=== PATIENT | female | born 1970 | race Caucasian/White ===

== ENCOUNTER 2020-09-22 13:41 | Outpatient (REF) | payer OTHER, SELFPAY ==
--- NOTE | 2020-09-22 | MM_ITS ---
EXAMINATION: MM SCREENING DIGITAL BREAST TOMOSYNTHESIS, BILATERAL CLINICAL INFORMATION: Screening. Asymptomatic. The lifetime risk of breast cancer based on the Tyrer-Cuzick Model is 7%. COMPARISON: Outside mammography: 10/11/2011, 04/23/2008 ([facility]). TECHNIQUE: Digital breast tomosynthesis is performed in both the craniocaudal and mediolateral oblique views along with computer-aided detection (CAD). Synthesized 2D images are generated from the tomosynthesis. Additional right MLO view is provided. FINDINGS: The breasts are heterogeneously dense, which may obscure small masses (ACR BI-RADS breast composition Category c). Breast tissue composition borders on average fibroglandular. Breast tissue composition is less dense than on prior outside studies. There is no interval mass or architectural abnormality or abnormal calcifications. Skin contours are smooth. MM/MM tomosynthesis screening BI IMPRESSION: No mammographic evidence of malignancy. ASSESSMENT: BI-RADS 1: Negative RECOMMENDATION: Routine annual mammography screening. This patient's information was entered into a reminder system with a target due date for their next mammogram.
== END 2020-09-22 13:42 | disposition home or self-care (01) ==
LOC: HO.MAMMO 13:41
PROVIDERS: Visit Provider Nurse Practitioner Family
DX: Z12.31 Encounter for screening mammogram for malignant neoplasm of breast (principal)
CPT/HCPCS: 77063; 77067

== ENCOUNTER 2022-02-20 21:16 | Emergency (ER) | payer SELFPAY ==
--- NOTE | ~2022-02-20 | CT_ITS ---
EXAMINATION: CT ABDOMEN AND PELVIS WITHOUT CONTRAST CLINICAL INFORMATION: Left flank pain. COMPARISON: Radiograph 02/20/2022 TECHNIQUE: Multidetector volumetric imaging was performed from the superior aspect of the liver through the pubic symphysis. Sagittal and coronal reformatted images were obtained on the technologist's workstation. This CT examination was performed using dose optimization techniques as appropriate, variously including the following: *Automated exposure control *Adjustment of mA and/or kV according to patient size (this includes techniques or standardized protocols for targeted exams where dose is matched to indication/reason for exam; i.e. extremities or head) *Use of iterative reconstruction technique DLP: 843 mGy-cm FINDINGS: LUNG BASES: The visualized lung bases are unremarkable. LIVER, GALLBLADDER, AND BILIARY TREE: The liver is normal in size, shape, and attenuation. No focal hepatic lesion or biliary ductal dilatation is present. The gallbladder is unremarkable with no evidence of radiopaque gallstones, gallbladder wall thickening, or obvious pericholecystic inflammatory changes. PANCREAS: Unremarkable. SPLEEN: Unremarkable. ADRENAL GLANDS: Unremarkable. KIDNEYS AND URETERS: The kidneys are normal in size, shape, and attenuation. No hydronephrosis, hydroureter, or calculi seen. No perinephric stranding. BLADDER: Unremarkable. GASTROINTESTINAL TRACT: The stomach is unremarkable. Normal caliber small bowel. No obstruction. No colonic wall thickening or inflammation. Normal appendix. No free air or free fluid. ABDOMINAL WALL: No significant hernia is appreciated. LYMPH NODES: Normal. VASCULAR: Normal caliber aorta with mild atherosclerotic calcification. PELVIC VISCERA: The uterus and adnexa are unremarkable. OSSEOUS STRUCTURES: No acute or suspicious osseous abnormality. Transitional and at the lumbosacral junction. CT/CT abdomen pelvis wo con IMPRESSION: No acute finding in the abdomen or pelvis. No hydronephrosis or nephrolithiasis. No inflammatory changes. Fleischner guidelines were followed.
--- NOTE | ~2022-02-20 | XR_ITS ---
EXAMINATION: XR ABDOMEN KUB CLINICAL INDICATION: Left-sided flank pain with question of kidney stone COMPARISON: None TECHNIQUE: AP view of the abdomen. FINDINGS: The bowel gas pattern is normal with no evidence of ileus or obstruction. No unusual soft tissue calcifications are noted. The bones are unremarkable. XR/XR KUB IMPRESSION: Unremarkable examination.
[2022-02-20 22:25] VITALS: BP 162/103; PULSE 89; RESP 17; TEMP 36.9; O2SAT 98; BMI 34.4
[2022-02-20 22:53] LABS: Appearance Urine CLEAR; Color Urine YELLOW; Glucose Urine UA NEG (NEG); Leukocyte Esterase Urine NEG (NEG); Nitrite Urine NEG (NEG); Specific Gravity - Urine >= 1.030 (1.005-1.025); Urine Blood NEG (NEG); Urine Ketones NEG (NEG); Urine Protein NEG (NEG-TRACE)
--- NOTE | 2022-02-20 23:50 | ED_ITS ---
HPI - General Adult General Chief complaint: General Medical Stated complaint: upper back pain, r/o clot cat scan Time Seen by Provider: 02/20/22 23:49 Source: patient Mode of arrival: ambulatory History of Present Illness HPI narrative: 51-year-old female without significant past medical history presents with mid posterior back pain/flank pain that has been ongoing for approximately 1 week, is intermittent/sharp in nature and when she does have a pain she experiences ?sweatiness? as well as nausea without vomiting. She otherwise denies any fever, chills, sore throat, shortness of breath, chest pain/palpitations, use control, recent travel, family or personal history of clots, or calf swelling. Patient denies any unexplained weight loss or night sweats and otherwise denies GI or symptoms. She was recently treated for presumptive UTI but then she was called by her PCP and informed that the urine culture did not grow any organisms. Patient denies any new exercise regimen or trauma. Related Data Previous Rx's Medication Instructions Recorded cyclobenzaprine 10 mg tablet 10 mg PO BID #180 tab 05/28/21 lorazepam 0.5 mg tablet 0.5 mg PO BID 30 Days #60 tab 05/28/21 lisinopril 10 mg tablet 10 mg PO DAILY #90 tab 01/22/22 levothyroxine 125 mcg tablet 125 mcg PO DAILY #90 tab 02/10/22 (Synthroid) cyclobenzaprine 5 mg tablet 5 mg PO BEDTIME PRN #4 tab 02/21/22 Allergies Allergy/AdvReac Type Severity Reaction Status Date / Time coconut Allergy Facial Verified 02/20/22 22:25 Swelling walnut Allergy Chest Pain Verified 02/20/22 22:25 PEACHES Allergy Swelling Uncoded 02/20/22 22:25 PLUM Allergy Facial Uncoded 02/20/22 22:25 Swelling Review of Systems Review of Systems: Pertinent positives and negatives as stated in HPI 10 point review of systems is otherwise negative. [facility] Past Medical History Source: nursing notes reviewed Medical History HTN (hypertension) Hypothyroid TMJ (temporomandibular joint syndrome) Social History Social History Advance Directives: No Advance Directives Information Provided: No Patient : No Physical Exam ED Vital Signs: Vital Signs - 24 hr 02/20/22 22:25 Temperature 98.4 F Pulse Rate 89 Respiratory Rate 17 Blood Pressure 162/103 H Pulse Oximetry 98 BMI result Body Mass Index 34.4 VITAL SIGNS: Reviewed. GENERAL: Well developed, well nourished, in no acute distress. HEAD: Normocephalic/atraumatic EYES: PERRLA, EOMI EARS: Ext canals without abnormality OROPHARYNX: no oral lesions noted, posterior pharynx clear NECK: Supple, no adenopathy LUNGS: Normal breath sounds, no tachypnea/wheeze/rhonchi/rales. SpO2<98> CARDIOVASCULAR: Regular rate and rhythm without noted murmurs, no JVD or lower extremity edema. ABDOMEN: Soft, non-tender, non-distended with bowel sounds, no CVA tenderness SKIN: Inspection of the skin reveals no rashes NEUROLOGIC: Alert and oriented x 4. Strength and sensation to light touch were grossly intact x 4. Course Course Course Narrative: 51-year-old female with history and clinical presentation most consistent with renal colic/kidney stone, PERC negative, no suggestion of pneumonia/cardiac ischemia/chest wall pathology or intra-abdominal pathology. Review of all investigations negative for acute findings and results discussed with the patient at bedside and treat for presumptive musculoskeletal pain. Medical Decision Making Lab Data Labs: Lab Results 02/20/22 Range/Units 22:47 Urine Color YELLOW Urine Appearance CLEAR Urine pH 5.0 (5.0-8.0) Ur Specific [place] >= 1.030 H (1.005-1.025) Urine Protein NEG (NEG-TRACE) MG/DL Urine Glucose (UA) NEG (NEG) MG/DL Urine Ketones NEG (NEG) MG/DL Urine Blood NEG (NEG) Urine Nitrite NEG (NEG) Ur Leukocyte Esterase NEG (NEG) Discharge Plan Discharge Clinical Impression: Mid back pain on left side, Muscle spasm Patient Disposition: Home, Self-Care Instructions: Muscle Spasm (ED), Back Pain (ED) Additional Instructions: 1. Tylenol 1000 mg, orally, every 6 hours as needed for pain control. Do not exceed 4000 mg within 24 hours. 2. Ibuprofen 400 mg, orally with milk or food, every 6 hours as needed for pain control. 3. Lidocaine patch to area of maximal tenderness as directed on the outside packaging. 4. Recommend following up with your primary care provider for re-evaluation and further outpatient management. Return to the ER for worsening symptoms. Prescriptions: New cyclobenzaprine 5 mg tablet 5 mg PO BEDTIME PRN (Reason: muscle spasm) Qty: 4 0RF No Action cyclobenzaprine 10 mg tablet 10 mg PO BID Qty: 180 0RF lorazepam 0.5 mg tablet 0.5 mg PO BID 30 Days Qty: 60 1RF lisinopril 10 mg tablet 10 mg PO DAILY Qty: 90 1RF levothyroxine [Synthroid] 125 mcg tablet 125 mcg PO DAILY Qty: 90 0RF
[2022-02-21] MEDS: Acetaminophen 325 MG TABLET 975 MG PO (02:18)
[2022-02-21] MEDS: Ketorolac Tromethamine 15 MG/ML VIAL IM (02:18)
== END 2022-02-21 03:10 | disposition home or self-care (01) ==
PROVIDERS: Emergency Provider Student in an Organized Health Care Education/Training Program
DX: M54.50 Low back pain, unspecified (principal); R10.2 Pelvic and perineal pain; Z79.899 Other long term (current) drug therapy
CPT/HCPCS: 74018; 74176; 81003; 96372; 99283; 99284; J1885

== ENCOUNTER 2022-07-18 13:47 | Outpatient (REF) | payer OTHER, SELFPAY ==
--- NOTE | ~2022-07-18 | US_ITS ---
EXAMINATION: US VENOUS ULTRASOUND WITH DOPPLER LOWER EXTREMITY, LEFT CLINICAL INFORMATION: Pain and swelling left lower extremity. Assess for occult DVT. COMPARISON: None TECHNIQUE: Ultrasound of the deep veins is performed from the hip to the calf with compression sonography and color and pulse Doppler assessment. Spectral analysis with color-flow imaging is performed. FINDINGS: There is normal venous compression and respiratory variation and augmented flow. The visualized common femoral vein, superficial femoral vein, profunda femoral vein, popliteal vein, and the trifurcation region shows no evidence of deep venous thrombosis. No popliteal fossa cyst demonstrated. Additional imaging anterior left mid thigh is unremarkable. US/US venous duplex LE LT IMPRESSION: No DVT demonstrated in the left lower extremity.
== END 2022-07-18 13:48 | disposition home or self-care (01) ==
LOC: HO.HMGCX 13:47
PROVIDERS: Visit Provider Nurse Practitioner Family
DX: M79.605 Pain in left leg (principal); R60.0 Localized edema; M79.89 Other specified soft tissue disorders
CPT/HCPCS: 93971

== ENCOUNTER 2022-07-19 10:07 | Outpatient (REF) | payer OTHER, SELFPAY ==
[2022-07-19 11:21] LABS: Appearance Urine Cloudy; Color Urine Yellow; Glucose Urine UA Negative (Negative); Leukocyte Esterase Urine Negative (Negative); Nitrite Urine Negative (Negative); PH 5.5 (5.0-9.0); Specific Gravity - Urine >= 1.030 (1.005-1.025); UMIC TRIGGER UACC YES; Urine Blood Small (1+) (Negative); Urine Ketones Negative (Negative); Urine Protein Negative (Neg-Trace)
[2022-07-19 11:23] LABS: MANUAL DIFF FLAG NO
[2022-07-19 11:31] LABS: Basophils Percent Auto 0.7 % (0-2); Eosinophils Absolute Auto 0.2 X10*3/uL (0.0-0.4); Eosinophils Percent Auto 4.1 % (0-4); Hematocrit 35.6 % (37.0-47.0); Hemoglobin 11.7 g/dl (12.0-16.0); Imm Gran Abs Auto 0.01 X10*3/uL (0.00-0.03); Imm Gran Pct Auto 0.2 % (0.0-0.4); Lymphocytes Absolute Auto 1.3 X10*3/uL (1.2-4.9); Lymphocytes Percent Auto 31.1 % (20-40); Mean Corpuscular HGB Conc 32.9 g/dl (31.0-35.0); Mean Corpuscular Hemoglobin 29.7 pg (27.0-33.0); Mean Corpuscular Volume 90.4 fL (80.0-98.0); Mean Platelet Volume 9.9 fL (9.4-12.3); Monocytes Absolute Auto 0.4 X10*3/uL (0.1-1.2); Monocytes Percent Auto 8.4 % (2-11); Neutrophils Absolute Auto 2.3 x10*3/uL (2.0-8.3); Neutrophils Percent Auto 55.5 % (45-73); Platelet Count 328 X10*3/uL (160-400); Red Blood Count 3.94 X10*6/uL (4.20-5.50); Red Cell Distribution Width 13.1 % (11.0-16.0); White Blood Count 4.2 X10*3/uL (4.8-10.8)
[2022-07-19 11:50] LABS: Bacteria Urine None Seen (None Seen); Hyaline Casts Urine 0-2 /LPF (0-2); Other Crystals Urine Present; WBC Urine 0-5 /HPF (0-5)
[2022-07-19 12:06] LABS: Ferritin 33 ng/mL (10-250); TSH reflex Free T4 0.01 uIU/mL (0.32-4.0)
[2022-07-19 12:11] LABS: Vitamin B12 254 pg/mL (200-900)
[2022-07-19 14:34] LABS: Anion Gap 16 (12-20); Bilirubin Total 0.5 mg/dL (0.0-1.0); Blood Urea Nitrogen 15 mg/dL (9-16); Carbon Dioxide 23 mmol/L (22-29); Chloride 106 mmol/L (96-108); Estimated Glomerular Filt Rate > 60; Glucose Fasting 99 mg/dL (60-99); Iron 77 mcg/dL (30-160); Percent Iron Saturation 19 % (15-50); Sodium 141 mmol/L (135-145); Total Iron Binding Capacity 410 mcg/dL (228-428); Unsaturated Iron Binding 333 ug/dL
[2022-07-19 14:35] LABS: Alanine Aminotransferase 17 U/L (0-31); Albumin Level 4.5 g/dL (3.5-5.0); Alkaline Phosphatase 84 U/L (39-117); Aspartate Amino Transferase 18 U/L (5-31); Cholesterol 243 mg/dL; HDL Cholesterol 54 mg/dL; LDL Cholesterol Calculated 156 mg/dl; Total Protein 7.1 g/dL (6.5-8.0); Triglycerides 166 mg/dL
== END 2022-07-19 10:08 | disposition home or self-care (01) ==
LOC: HO.HMGCLDS 10:07
PROVIDERS: PCP Nurse Practitioner Family; Visit Provider Nurse Practitioner Family
DX: R06.02 Shortness of breath (principal); Z82.49 Family history of ischemic heart disease and other diseases of the circulatory system
CPT/HCPCS: 36415; 80053; 80061; 81001; 82607; 82728; 82746; 83540; 84439; 84443; 85025

== ENCOUNTER 2022-11-08 11:16 | Outpatient (REF) | payer SELFPAY ==
[2022-11-08 14:10] LABS: MANUAL DIFF FLAG NO
[2022-11-08 14:16] LABS: Basophils Percent Auto 0.9 % (0-2); Eosinophils Absolute Auto 0.2 X10*3/uL (0.0-0.4); Eosinophils Percent Auto 5.1 % (0-4); Hematocrit 34.2 % (37.0-47.0); Imm Gran Abs Auto 0.02 X10*3/uL (0.00-0.03); Imm Gran Pct Auto 0.5 % (0.0-0.4); Lymphocytes Absolute Auto 1.7 X10*3/uL (1.2-4.9); Lymphocytes Percent Auto 39.6 % (20-40); Mean Corpuscular HGB Conc 32.2 g/dl (31.0-35.0); Mean Corpuscular Hemoglobin 29.5 pg (27.0-33.0); Mean Corpuscular Volume 91.7 fL (80.0-98.0); Mean Platelet Volume 9.5 fL (9.4-12.3); Monocytes Absolute Auto 0.3 X10*3/uL (0.1-1.2); Monocytes Percent Auto 6.7 % (2-11); Neutrophils Percent Auto 47.2 % (45-73); Platelet Count 259 X10*3/uL (160-400); Red Blood Count 3.73 X10*6/uL (4.20-5.50); Red Cell Distribution Width 13.2 % (11.0-16.0); White Blood Count 4.3 X10*3/uL (4.8-10.8)
[2022-11-08 14:19] LABS: Appearance Urine Clear; Color Urine Yellow; Glucose Urine UA Negative (Negative); Leukocyte Esterase Urine Negative (Negative); Nitrite Urine Negative (Negative); PH 5.5 (5.0-9.0); Specific Gravity - Urine 1.025 (1.005-1.025); UMIC TRIGGER UACC YES; Urine Blood Small (1+) (Negative); Urine Ketones Negative (Negative); Urine Protein Negative (Neg-Trace)
[2022-11-08 14:37] LABS: Bacteria Urine None Seen (None Seen); Hyaline Casts Urine 0-2 /LPF (0-2); RBC Urine 0-2 /HPF (0-2); Squamous Epithelial Cell Urine 0-2 /HPF (0-2); WBC Urine 0-5 /HPF (0-5)
[2022-11-08 14:38] LABS: Alanine Aminotransferase 11 U/L (0-31); Albumin Level 4.4 g/dL (3.5-5.0); Alkaline Phosphatase 87 U/L (39-117); Anion Gap 10 (12-20); Aspartate Amino Transferase 14 U/L (5-31); Bilirubin Total 0.6 mg/dL (0.0-1.0); Blood Urea Nitrogen 17 mg/dL (9-16); Calcium 9.4 mg/dL (8.4-10.2); Carbon Dioxide 27 mmol/L (22-29); Chloride 105 mmol/L (96-108); Estimated Glomerular Filt Rate > 60; Glucose Random 92 mg/dL (60-115); Potassium 4.2 mmol/L (3.3-5.1); Sodium 138 mmol/L (135-145); Total Protein 6.8 g/dL (6.5-8.0)
[2022-11-08 14:44] LABS: TSH reflex Free T4 8.39 uIU/mL (0.32-4.0)
[2022-11-08 15:21] LABS: Free T4 (Free Thyroxine) 1.05 ng/dL (0.71-1.85)
== END 2022-11-08 11:17 | disposition home or self-care (01) ==
LOC: HO.HMGCLDS 11:16
PROVIDERS: PCP Nurse Practitioner Family; Visit Provider Nurse Practitioner Family
DX: E03.9 Hypothyroidism, unspecified (principal)
CPT/HCPCS: 36415; 80053; 81001; 84439; 84443; 85025

== ENCOUNTER 2023-03-29 14:09 | Emergency (ER) | payer OTHER, SELFPAY ==
--- NOTE | ~2023-03-29 | XR_ITS ---
EXAMINATION: Right knee, left foot and left ankle. CLINICAL INDICATION: Fall. Pain. COMPARISON: None. The area of the jugular Right knee 4 views, left foot 3 views and left ankle 2 views. FINDINGS: Right knee: The tricompartment joints is maintained normal. No loose bodies, bony erosive changes or joint effusion seen. No acute fracture or dislocation. Left ankle: No visible acute fracture, dislocation or subluxation seen. There is dorsal talonavicular enthesophytes. Mild dorsal midfoot soft tissue swelling is seen The ankle mortise and subtalar joints are normal The soft tissues are normal. Left foot: There is no visible acute fracture, dislocation or subluxation. The soft tissues are normal. XR/XR ankle LT 2V IMPRESSION: Unremarkable right knee. Mild soft tissue swelling dorsal midfoot. Mild dorsal talonavicular spurring.
--- NOTE | ~2023-03-29 | XR_ITS ---
EXAMINATION: Right knee, left foot and left ankle. CLINICAL INDICATION: Fall. Pain. COMPARISON: None. The area of the jugular Right knee 4 views, left foot 3 views and left ankle 2 views. FINDINGS: Right knee: The tricompartment joints is maintained normal. No loose bodies, bony erosive changes or joint effusion seen. No acute fracture or dislocation. Left ankle: No visible acute fracture, dislocation or subluxation seen. There is dorsal talonavicular enthesophytes. Mild dorsal midfoot soft tissue swelling is seen The ankle mortise and subtalar joints are normal The soft tissues are normal. Left foot: There is no visible acute fracture, dislocation or subluxation. The soft tissues are normal. XR/XR foot LT 2V IMPRESSION: Unremarkable right knee. Mild soft tissue swelling dorsal midfoot. Mild dorsal talonavicular spurring.
--- NOTE | ~2023-03-29 | XR_ITS ---
EXAMINATION: Right knee, left foot and left ankle. CLINICAL INDICATION: Fall. Pain. COMPARISON: None. The area of the jugular Right knee 4 views, left foot 3 views and left ankle 2 views. FINDINGS: Right knee: The tricompartment joints is maintained normal. No loose bodies, bony erosive changes or joint effusion seen. No acute fracture or dislocation. Left ankle: No visible acute fracture, dislocation or subluxation seen. There is dorsal talonavicular enthesophytes. Mild dorsal midfoot soft tissue swelling is seen The ankle mortise and subtalar joints are normal The soft tissues are normal. Left foot: There is no visible acute fracture, dislocation or subluxation. The soft tissues are normal. XR/XR knee RT 3V IMPRESSION: Unremarkable right knee. Mild soft tissue swelling dorsal midfoot. Mild dorsal talonavicular spurring.
--- NOTE | 2023-03-29 14:16 | ED_ITS ---
HPI - Fall General Chief Complaint: Extremity Injury, Lower Stated Complaint: Work inj/R knee inj/L ankle inj Time Seen by Provider: 03/29/23 14:44 History of Present Illness HPI Narrative: patient complains of right knee and left ankle pain after a slip and fall yesterday where she fell down 2 steps and landed on her ankle twisting it and also twisted and banged her right knee, no other injury no other complaint she did hit her head there is no headache neck pain back pain no arm pain no numbness no weakness Related Data Home Medications Medication Instructions Recorded Confirmed loratadine 10 mg tablet (Claritin) 10 mg PO DAILY 07/18/22 07/18/22 Previous Rx's Medication Instructions Recorded lorazepam 0.5 mg tablet 0.5 mg PO BID 30 days #60 tabs 05/28/21 amoxicillin 875 mg-potassium 1 tab PO BID 10 days #20 tabs 07/20/22 clavulanate 125 mg tablet fluoxetine 20 mg capsule (Prozac) 20 mg PO DAILY 30 days #30 caps 11/06/22 levothyroxine 100 mcg tablet 100 mcg PO DAILY 30 days #30 tabs 01/13/23 lisinopril 10 mg tablet 10 mg PO DAILY #90 tabs 02/13/23 Allergies Allergy/AdvReac Type Severity Reaction Status Date / Time coconut Allergy Facial Verified 07/18/22 12:25 Swelling walnut Allergy Chest Pain Verified 07/18/22 12:25 PEACHES Allergy Swelling Uncoded 07/18/22 12:25 PLUM Allergy Facial Uncoded 07/18/22 12:25 Swelling PMFSH Past Medical History Source: nursing notes reviewed Medical History (Updated 03/30/23 @ 00:00 by Tu Johnson) HTN (hypertension) Hypothyroid TMJ (temporomandibular joint syndrome) Family History Family History (Updated 07/18/22 @ 12:27 by DEMARCUS Ardon) Father No problems noted. Mother No problems noted. Social History Social History Housing: Apartment Patient Tobacco Use Status: Former Tobacco user Quit Date: quit 8 years ago e-Cigarette/Vaping Use: Never Used Second Hand Smoke Exposure: No service: No Current occupational status: employed Current occupation: [employer] Current occupational exposures/hazards: No Cognitive needs: No Hearing needs: No Vision needs: No Physical Exam Vital Signs: Vital Signs: Last Vital Signs Temp 98 F 03/29/23 14:24 Pulse 92 03/29/23 14:24 Resp 16 03/29/23 14:24 BP 137/77 03/29/23 14:24 Pulse Ox 98 03/29/23 14:24 O2 Del Method Room Air 03/29/23 14:24 BMI result Body Mass Index 32.3 general appearance no distress Head is normocephalic atraumatic Neck is supple nontender Respiratory no distress Extremities the right knee had full range of motion there was some mild bilateral tenderness there is no effusion there is no ligamentous laxity patient can do a straight leg raise can flex past 90, there was ecchymosis and contusion on the proximal tibia area, but no significant tenderness deformity or swelling The left ankle was swollen and tender both medial and lateral with significant ecchymosis, neurovascular intact distal no obvious deformity Course Course Course Narrative: This is a rapid medical exam. Deferred additional HPI, ROS, PE to primary provider. 52 yo female with history of hypothyroidism here with complaints of right knee pain, left ankle pain after fall down several steps at work yesterd ay. Pain worsened with WB. Denies hitting head or LOC. WIll check x-rays. VSS X-rays of ankle and knee were negative, patient is diagnosed with ankle and knee sprain Plan is activity as tolerated follow with orthopedist Discharge Plan Discharge Clinical Impression: Left ankle sprain, Right knee sprain Patient Disposition: Home, Self-Care Additional Instructions: x-ray did not show any broken bones in the left ankle or right knee You likely have sprain both her knee and her ankle Follow with orthopedist if needed, there is usually improvement within a week we do not need to use her crutches Return any time any worse condition or any concerns Apply ice elevate leg, activity as tolerated Prescriptions: No Action lorazepam 0.5 mg tablet 0.5 mg PO BID 30 Days Qty: 60 1RF amoxicillin-pot clavulanate 875-125 mg tablet 1 tab PO BID 10 Days Qty: 20 0RF fluoxetine [Prozac] 20 mg capsule 20 mg PO DAILY 30 Days Qty: 30 3RF levothyroxine 100 mcg tablet 100 mcg PO DAILY 30 Days Qty: 30 2RF lisinopril 10 mg tablet 10 mg PO DAILY Qty: 90 1RF loratadine [Claritin] 10 mg tablet 10 mg PO DAILY Referrals: Forrest Bai MD [Physician] - ( left ankle sprain, right knee sprain) Stand Alone Forms: Work/School Release Interventions: ED Discharge Assessment Last Done: 03/29/23 16:30 Discharge Date/Time: 03/29/23 16:30
[2023-03-29 14:24] VITALS: BP 137/77; PULSE 92; RESP 16; TEMP 36.6; O2SAT 98; BMI 32.3
== END 2023-03-29 16:30 | disposition home or self-care (01) ==
PROVIDERS: Emergency Provider Emergency Medicine; PCP Nurse Practitioner Family
DX: S93.402A Sprain of unspecified ligament of left ankle, initial encounter (principal); S93.401A Sprain of unspecified ligament of right ankle, initial encounter; M25.562 Pain in left knee; M25.561 Pain in right knee; W01.0XXA Fall on same level from slipping, tripping and stumbling without subsequent striking against object, initial encounter; Y93.9 Activity, unspecified; Y92.9 Unspecified place or not applicable; Y99.0 Civilian activity done for income or pay; Z79.899 Other long term (current) drug therapy; Z87.891 Personal history of nicotine dependence
CPT/HCPCS: 73562; 73600; 73620; 99282; 99283

== ENCOUNTER 2023-04-17 09:39 | Outpatient (REF) | payer OTHER, SELFPAY | END 2023-04-17 09:40 | disposition home or self-care (01) | LOC: HO.HOSX 09:39 | PROVIDERS: Visit Provider Physician Assistant | DX: Z13.89 Encounter for screening for other disorder (principal) ==

== ENCOUNTER 2023-10-19 11:25 | Outpatient (REF) | payer SELFPAY ==
[2023-10-19 13:32] LABS: MANUAL DIFF FLAG NO
[2023-10-19 13:41] LABS: Basophils Percent Auto 0.6 % (0-2); Eosinophils Absolute Auto 0.3 X10*3/uL (0.0-0.4); Eosinophils Percent Auto 8.6 % (0-4); Hematocrit 36.2 % (37.0-47.0); Hemoglobin 11.8 g/dl (12.0-16.0); Imm Gran Abs Auto 0.01 X10*3/uL (0.00-0.03); Imm Gran Pct Auto 0.3 % (0.0-0.4); Immature Retic Fraction 9.4 % (3.0-15.9); Lymphocytes Absolute Auto 1.3 X10*3/uL (1.2-4.9); Lymphocytes Percent Auto 35.9 % (20-40); Mean Corpuscular HGB Conc 32.6 g/dl (31.0-35.0); Mean Corpuscular Hemoglobin 29.1 pg (27.0-33.0); Mean Corpuscular Volume 89.4 fL (80.0-98.0); Mean Platelet Volume 9.4 fL (9.4-12.3); Monocytes Absolute Auto 0.2 X10*3/uL (0.1-1.2); Monocytes Percent Auto 5.8 % (2-11); Neutrophils Absolute Auto 1.8 x10*3/uL (2.0-8.3); Neutrophils Percent Auto 48.8 % (45-73); Platelet Count 308 X10*3/uL (160-400); Red Blood Count 4.05 X10*6/uL (4.20-5.50); Red Cell Distribution Width 12.4 % (11.0-16.0); Retic HGB Equivalent 29.4 pg (30.0-35.0); Reticulocyte Percent 0.9 % (0.5-1.8); Reticulocytes Absolute 0.037 X10*6/uL (0.026-0.095); White Blood Count 3.6 X10*3/uL (4.8-10.8)
[2023-10-19 13:53] LABS: Appearance Urine Clear; Color Urine Yellow; Glucose Urine UA Negative (Negative); Leukocyte Esterase Urine Negative (Negative); Nitrite Urine Negative (Negative); PH 5.5 (5.0-9.0); Specific Gravity - Urine >= 1.030 (1.005-1.025); UMIC TRIGGER UACC YES; Urine Blood Trace (Negative); Urine Ketones Negative (Negative); Urine Protein Negative (Neg-Trace)
[2023-10-19 14:02] LABS: Bacteria Urine None Seen (None Seen); Hyaline Casts Urine 0-2 /LPF (0-2); RBC Urine 0-2 /HPF (0-2); Squamous Epithelial Cell Urine 0-2 /HPF (0-2); WBC Urine 0-5 /HPF (0-5)
[2023-10-19 14:18] LABS: Alanine Aminotransferase 11 U/L (0-31); Albumin Level 4.3 g/dL (3.5-5.0); Alkaline Phosphatase 87 U/L (39-117); Anion Gap 15 (12-20); Aspartate Amino Transferase 16 U/L (5-31); Bilirubin Total 0.4 mg/dL (0.0-1.0); Blood Urea Nitrogen 14 mg/dL (9-16); Calcium 9.4 mg/dL (8.4-10.2); Carbon Dioxide 24 mmol/L (22-29); Chloride 107 mmol/L (96-108); Estimated Glomerular Filt Rate > 60; Glucose Random 90 mg/dL (60-115); Iron 77 mcg/dL (30-160); Percent Iron Saturation 26 % (15-50); Potassium 3.9 mmol/L (3.3-5.1); Sodium 142 mmol/L (135-145); Total Iron Binding Capacity 298 mcg/dL (228-428); Total Protein 7.1 g/dL (6.5-8.0); Unsaturated Iron Binding 221 ug/dL
[2023-10-19 14:31] LABS: Folate 12.4 ng/mL (> or = 4.0); Vitamin B12 387 pg/mL (200-900)
[2023-10-19 14:36] LABS: Ferritin 61 ng/mL (10-250); TSH reflex Free T4 0.34 uIU/mL (0.32-4.0)
== END 2023-10-19 11:26 | disposition home or self-care (01) ==
LOC: HO.HMGCLDS 11:25
PROVIDERS: PCP Nurse Practitioner Family; Visit Provider Nurse Practitioner Family
DX: E03.9 Hypothyroidism, unspecified (principal); D64.9 Anemia, unspecified
CPT/HCPCS: 36415; 80053; 81001; 82607; 82728; 82746; 83540; 84443; 85025; 85045

== ENCOUNTER 2023-10-31 09:05 | Outpatient (AMB) | payer SELFPAY ==
--- NOTE | 2023-10-31 07:17 | MHC.PC.OV ---
Intake Visit Reasons: Discuss labs-iphone Allergies coconut Allergy (Verified 05/07/23 12:04) Facial Swelling walnut Allergy (Verified 05/07/23 12:04) Chest Pain PEACHES Allergy (Uncoded 05/07/23 12:04) Swelling PLUM Allergy (Uncoded 05/07/23 12:04) Facial Swelling Medication List - Last Reconciled 10/31/23 by DEMARCUS Ardon cyclobenzaprine 10 mg PO BID 90 days fluoxetine (Prozac) 20 mg PO DAILY levothyroxine 100 mcg PO DAILY lisinopril 10 mg PO DAILY loratadine (Claritin) 10 mg PO DAILY lorazepam 0.5 mg PO BID 30 days Tobacco use date assessed: 07/18/22 HPI Discuss labs-iphone HPI Details Pt's last labs showed iron deficiency anemia. She denies any GI bleeding. Recommended pt start iron tabs daily. Repeat labs and FIT testing have been ordered. Micro hem also noted, pt has been worked up for this in the past. Repeat UA and cytology have been ordered. Pt quit smoking 8 years ago. Denies fever, chills, and visible hematuria. [facility] Medical History TMJ (temporomandibular joint syndrome) HTN (hypertension) Hypothyroid Family History Father No problems noted. Mother No problems noted. Social History Housing: Apartment Patient Tobacco Use Status: Former Tobacco user Quit Date: quit 8 years ago e-Cigarette/Vaping Use: Never Used Second Hand Smoke Exposure: No service: No Current occupational status: employed Current occupation: [employer] Current occupational exposures/hazards: No Cognitive needs: No Hearing needs: No Vision needs: No Questionnaire Thrive Questionnaire Date Thrive assessed: 07/18/22 GURDEEP-7 AMB Questionnaire GURDEEP-7 Date GURDEEP - 7 assessed: 07/18/22 Source: Developed by Drs. Janes Lopez, Susanna Riggins, Leonardo Gerber and colleagues, with an educational elaine from [employer]. Review of Systems Const Reports as per HPI Physical exam (Primary Care) Tobacco/Smoking Status: Tobacco use Status Tobacco use date assessed 07/18/22 10/31/23 07:19 Patient Tobacco Use Status Former Tobacco user 10/31/23 07:19 e-Cigarette/Vaping Use Never Used 10/31/23 07:19 Thrive Assessment: Date of Thrive Assessment Date Thrive assessed 07/18/22 10/31/23 07:19 Const General: cooperative Orientation/consciousness: patient oriented x3 Resp Auscultation: clear to auscultation bilaterally Neuro General: patient oriented x3 Psych Appearance: grossly normal Mental Status: mental status grossly normal Speech and movement: Clear speech present Affect: normal affect Attitude: cooperative Thought process: Normal thought process present Thought content: Normal thought content present Insight: Good insight present (Psych) Judgement: Good judgement present (Psych) Telehealth Telehealth Location of provider rendering services: practice address Location of patient: address on file Patient Identification confirmed using: Name, : Yes Telehealth method: video Patient verbally consented to treatment: Yes Patient verbally consented to billing insurance company: Yes Patient informed of any privacy concerns related to visit: Yes Minutes spent on Phone/Video with Pt.: 10 Assessment and Plan Assessment & Plan (1) Microscopic hematuria: Comment: was worked up for micro hem in the past (including cytology and cystoscopy) Code(s): R31.29 - Other microscopic hematuria (2) Iron deficiency anemia: Code(s): D50.9 - Iron deficiency anemia, unspecified (3) Hypothyroid: Code(s): E03.9 - Hypothyroidism, unspecified Plan The patient agreed to the use of a medical auditor for this encounter. Scribed for FRANCES Aponte-DOYLE by kristen Pierson scribe, on 10/31/2023 at 07:15 EST. Coding Level of Care Code Tele Est Pt Level 3 (94801) Diagnoses Microscopic hematuria R31.29 Iron deficiency anemia D50.9 Hypothyroid E03.9
== END 2023-10-31 10:37 | disposition home or self-care (01) ==
LOC: HO.HMGC 09:05
PROVIDERS: PCP Nurse Practitioner Family; Visit Provider Nurse Practitioner Family
DX: R31.29 Other microscopic hematuria (principal); D50.9 Iron deficiency anemia, unspecified; E03.9 Hypothyroidism, unspecified
CPT/HCPCS: 99213

== ENCOUNTER 2024-10-18 14:16 | Outpatient (AMB) | payer OTHER, SELFPAY ==
[2024-10-18 14:16] VITALS: BP 120/72; PULSE 92; TEMP 36.3; O2SAT 97; BMI 32.3
--- NOTE | 2024-10-18 14:16 | AM.OFFWIN_ITS ---
Intake Vital Signs 10/18/24 14:16 Height 5 ft 6 in Weight 200 lb BMI 32.3 BP 120/72 Blood Pressure Location Rt brachial Position Sitting Pulse 92 Pulse Source Pulse Oximeter Temp 97.3 F Temp Source Temporal Artery Scan Pulse Oximetry (%) 97 Intake Visit Reasons: EP ?sinus infection/Mouth infection Patient Tobacco Use Status: Former Tobacco user Allergies coconut Allergy (Verified 10/18/24 14:16) Facial Swelling walnut Allergy (Verified 10/18/24 14:16) Chest Pain PEACHES Allergy (Uncoded 05/07/23 12:04) Swelling PLUM Allergy (Uncoded 05/07/23 12:04) Facial Swelling Do you need a note to return to daycare/school/sports/work: No HPI HPI Comments History of Present Illness Details She presents to office with sinus, L ear and R oral complaint She states chronic sinus issues and has been having URI sinus symptoms all fall Uses flonase, claritin, sudafed prn for symptoms States recently sinus pressure worse with head lowering/bending over Onset of L sided ear pain without hearing changes + R lower tooth pain and swelling, ashok rned for infection and she does not have dentist denies dental trauma States + subjective fever/chills No medicine otherwise for symptoms and has not been seen yet + cough with phlegm production without C P or SOB PFSH Medical History TMJ (temporomandibular joint syndrome) HTN (hypertension) Hypothyroid Family History Father No problems noted. Mother No problems noted. Social History Housing: Apartment Patient Tobacco Use Status: Former Tobacco user e-Cigarette/Vaping Use: Never Used Second Hand Smoke Exposure: No service: No Current occupational status: employed Current occupation: [employer] Current occupational exposures/hazards: No Cognitive needs: No Hearing needs: No Vision needs: No Review of Systems Const Reports chills and Reports fever(s) Eyes Denies change in vision ENT Reports dental pain (R lower gums), Denies ear discharge, Reports otalgia, Reports mouth pain, Reports nasal congestion, Denies tinnitus, Reports sinus pain and Reports sore throat Card Denies chest pain and Denies dyspnea Resp Reports change in phlegm color, Reports cough and Denies dyspnea Skin/Breast Denies sores and Denies wounds Physical Exam Vital Signs: Last Vital Signs Temp 97.3 F 10/18/24 14:16 Pulse 92 10/18/24 14:16 BP 120/72 10/18/24 14:16 Pulse Ox 97 10/18/24 14:16 BMI result Body Mass Index 32.3 General: Non-toxic, NAD. Speaking full sentences. Skin: Warm dry throughout. No facial edema Eye: EOMI HENT: Airway patent. Uvula midline. No pharyngeal erythema or edema. No SVP OPERATIONS. R lower gingivae has + edema lateral to tooth number 30. No drainable abscess present. + ttp. Bilateral canals clear. L TM + erythematous and bulging with central bullae formation. No perforation noted. R Tm minimal erythema without bulging. No TM hemotympanum noted bilaterally Respiratory: CTA bilaterally. No wheezes, rales or rhonchi Cardiac: RRR. No murmur MSK: Full ROM extremities. Neurology: Alert. No aphasia or facial droop. Gait without abnormality Psych: Good mood and affect Assessment & Plan Assessment & Plan (1) Bullous myringitis of left ear: Code(s): H73.012 - Bullous myringitis, left ear Plan: Pt seen and evaluated Augmentin for L ear, sinus and dental coverage HEad elevation Ibuprofen prn pain Mask wear around infants F.U with PCP Call with concerns Pt had no additional questions or concerns at time of discharge Medications: New amoxicillin-pot clavulanate 875-125 mg 1 tab PO BID 20 tabs 0RF fluconazole (Diflucan) 200 mg PO DAILY 2 tabs 0RF Coding Level of Care Code Est Pt Level 3 (09915) Diagnoses Bullous myringitis of left ear H73.012
== END 2024-10-18 14:37 | disposition home or self-care (01) ==
PROVIDERS: PCP Nurse Practitioner Family; Visit Provider Physician Assistant
DX: H73.012 Bullous myringitis, left ear (principal)

== ENCOUNTER → 2024-10-18 14:16 | Outpatient (BNVA) | payer OTHER, SELFPAY | PROVIDERS: PCP Nurse Practitioner Family; Visit Provider Physician Assistant | DX: H73.012 Bullous myringitis, left ear (principal) | CPT/HCPCS: 99212 ==

== ENCOUNTER 2025-02-19 14:48 | Outpatient (AMB) | payer OTHER, SELFPAY ==
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
[2025-02-19 14:53] VITALS: BP 152/98; PULSE 95; O2SAT 98; BMI 35.2
[2025-02-19 15:38] VITALS: BP 142/88
== END 2025-02-19 16:21 | disposition home or self-care (01) ==
LOC: HO.HMCC 14:48
PROVIDERS: PCP Nurse Practitioner Family; Visit Provider Nurse Practitioner Family
DX: Z00.00 Encounter for general adult medical examination without abnormal findings (principal); J45.909 Unspecified asthma, uncomplicated; I10 Essential (primary) hypertension; R01.1 Cardiac murmur, unspecified; Z12.11 Encounter for screening for malignant neoplasm of colon; F17.200 Nicotine dependence, unspecified, uncomplicated

== ENCOUNTER → 2025-02-19 14:48 | Outpatient (BNVA) | payer SELFPAY | PROVIDERS: PCP Nurse Practitioner Family; Visit Provider Nurse Practitioner Family | DX: Z00.00 Encounter for general adult medical examination without abnormal findings (principal); J45.909 Unspecified asthma, uncomplicated; I10 Essential (primary) hypertension; R01.1 Cardiac murmur, unspecified; F17.200 Nicotine dependence, unspecified, uncomplicated | CPT/HCPCS: 96127; 99396 ==

== ENCOUNTER 2025-02-23 09:55 | Outpatient (REF) | payer OTHER, SELFPAY ==
[2025-02-23 13:10] LABS: MANUAL DIFF FLAG NO
[2025-02-23 13:16] LABS: Basophils Absolute Auto 0.1 X10*3/uL (0.0-0.2); Basophils Percent Auto 0.9 % (0-2); Eosinophils Absolute Auto 0.3 X10*3/uL (0.0-0.4); Eosinophils Percent Auto 5.2 % (0-4); Hematocrit 37.5 % (37.0-47.0); Hemoglobin 12.1 g/dl (12.0-16.0); Imm Gran Abs Auto 0.02 X10*3/uL (0.00-0.03); Imm Gran Pct Auto 0.4 % (0.0-0.4); Lymphocytes Absolute Auto 1.3 X10*3/uL (1.2-4.9); Mean Corpuscular HGB Conc 32.3 g/dl (31.0-35.0); Mean Corpuscular Hemoglobin 29.2 pg (27.0-33.0); Mean Corpuscular Volume 90.4 fL (80.0-98.0); Mean Platelet Volume 9.5 fL (9.4-12.3); Monocytes Absolute Auto 0.4 X10*3/uL (0.1-1.2); Monocytes Percent Auto 6.9 % (2-11); Neutrophils Absolute Auto 3.4 x10*3/uL (2.0-8.3); Neutrophils Percent Auto 62.6 % (45-73); Platelet Count 384 X10*3/uL (160-400); Red Blood Count 4.15 X10*6/uL (4.20-5.50); Red Cell Distribution Width 13.1 % (11.0-16.0); White Blood Count 5.4 X10*3/uL (4.8-10.8)
[2025-02-23 13:23] LABS: Appearance Urine Cloudy; Color Urine Yellow; Glucose Urine UA Negative (Negative); Leukocyte Esterase Urine Negative (Negative); Nitrite Urine Negative (Negative); Specific Gravity - Urine >= 1.030 (1.005-1.025); UMIC TRIGGER UACC YES; Urine Blood Moderate (2+) (Negative); Urine Ketones Negative (Negative); Urine Protein Trace mg/dL (Neg-Trace)
[2025-02-23 13:41] LABS: Alanine Aminotransferase 20 U/L (0-31); Albumin Level 4.5 g/dL (3.5-5.0); Alkaline Phosphatase 87 U/L (39-117); Anion Gap 13 (12-20); Aspartate Amino Transferase 25 U/L (5-31); Bilirubin Total 0.5 mg/dL (0.0-1.0); Blood Urea Nitrogen 14 mg/dL (9-16); Calcium 9.5 mg/dL (8.4-10.2); Carbon Dioxide 23 mmol/L (22-29); Chloride 108 mmol/L (96-108); Cholesterol 251 mg/dL (<200); Estimated Glomerular Filt Rate > 60; Glucose Fasting 102 mg/dL (60-99); HDL Cholesterol 59 mg/dL (>40); LDL Cholesterol Calculated 169 mg/dL (<100); Potassium 3.8 mmol/L (3.3-5.1); Sodium 140 mmol/L (135-145); Total Protein 7.2 g/dL (6.5-8.0); Triglycerides 118 mg/dL (<150)
[2025-02-23 13:46] LABS: TSH reflex Free T4 0.51 uIU/mL (0.32-4.0); Vitamin D 25-OH Total 29.8 ng/mL (>30)
[2025-02-23 14:19] LABS: WBC Urine 0-5 /HPF (0-5)
[2025-02-23 14:20] LABS: Bacteria Urine Trace (None Seen); Hyaline Casts Urine 0-2 /LPF (0-2)
[2025-02-27 23:44] LABS: Class Alternaria alternata 2; Class Aspergillus fumigatus 0; Class Bermuda Grass 0; Class Birch 0; Class Cat Dander 0; Class Cladosporium herbarum 0; Class Cockroach 0; Class Common Ragweed 1; Class Cottonwood 0; Class Derm. pterony 0; Class Dermatophagoides farinae 0; Class Dog Dander 0; Class Elm 0; Class Maple Box Elder 0; Class Mountain Cedar 0; Class Mouse Urine Protein 0; Class Mugwort 0; Class Oak 0; Class Penicillium crysogenum 0; Class Rough Pigweed 0; Class Sheep Sorrel 0; Class Sycamore 0; Class Timothy Grass 0; Class Walnut Tree 0; Class White Ash 0; Class White Mulberry 0; D001 IgE D pteronyssinus <0.10 kU/L; D002 - IgE D farinae <0.10 kU/L; E001 - IgE Cat Dander <0.10 kU/L; E005 - IgE Dog Dander <0.10 kU/L; E072-IgE Mouse Urine <0.10 kU/L; G002 IgE Bermuda Grass <0.10 kU/L; G006 - IgE Timothy Grass <0.10 kU/L; I006-IgE Cockroach, German <0.10 kU/L; Immunoglobulin E 5 kU/L (<OR=114); M001 IgE Penicillium chrysogen <0.10 kU/L; M002 - IgE Cladosporium herbar <0.10 kU/L; M003 - IgE Aspergillus fumigat <0.10 kU/L; M006 - IgE Alternaria alternat 1.08 kU/L; T001 IgE Maple/Box Elder <0.10 kU/L; T003 IgE Common Silver Birch <0.10 kU/L; T006 - IgE Cedar, Mountain <0.10 kU/L; T007 - IgE Oak, White <0.10 kU/L; T008 IgE Elm, American <0.10 kU/L; T010 - IgE Walnut <0.10 kU/L; T011 - IgE Maple Leaf Sycamore <0.10 kU/L; T014 - IgE Cottonwood <0.10 kU/L; T015 - IgE Ash, White <0.10 kU/L; T070 - IgE White Mulberry <0.10 kU/L; W006 - IgE Mugwort <0.10 kU/L; W014 IgE Pigweed, Common <0.10 kU/L; W018 IgE Sheep Sorrel <0.10 kU/L
== END 2025-02-23 09:56 | disposition home or self-care (01) ==
LOC: HO.HMGCLDS 09:55
PROVIDERS: PCP Nurse Practitioner Family; Visit Provider Nurse Practitioner Family
DX: Z00.00 Encounter for general adult medical examination without abnormal findings (principal); R06.2 Wheezing
CPT/HCPCS: 36415; 80053; 80061; 81001; 81003; 82306; 82785; 84443; 85025; 86003

== ENCOUNTER → 2025-03-23 13:07 | Outpatient (REF) | payer OTHER, SELFPAY ==
--- NOTE | 2025-03-23 13:10 | CA_ITS ---
Transthoracic Echocardiogram Patient (Last, First, Middle): Elis Vu, Gender: Female Date of : 1970 Age: 54 Procedure Date: 03/23/2025 Procedure Type: Transthoracic Echocardiogram Location: OP Height: 167.64 cm Weight: 95.26 kg BSA: 2.04 m2 Heart Rate: bpm BP: 121 / 79 mmHg Business Services Associate: TIERNEY Referring MD: Jethro Gupta [facility] Symptoms: R01.1 - Cardiac murmur, unspecified Study Quality: Fair, contrast ECG Rhythm: Sinus Conclusions: - The left ventricular systolic function is hyperdynamic. The visually estimated ejection fraction is >70%. - No obvious valvular pathology seen on this study. Findings Procedure Information Contrast agent, definity, is being given per protocol without apparent complications. Left Ventricle Normal left ventricular cavity size. The left ventricular systolic function is hyperdynamic. The visually estimated ejection fraction is >70%. There is no evidence of regional wall motion abnormalities. Diastolic function is normal for age. There is mild septal asymmetric hypertrophy. Right Ventricle Normal right ventricular cavity size and systolic function. Atria Both atria are normal in size. Aortic Valve There is a normal trileaflet aortic valve. There is no aortic valve stenosis. There is no aortic valve regurgitation. Mitral Valve The mitral valve appears normal. There is no mitral valve regurgitation. There is no mitral valve stenosis. Pulmonic Valve The pulmonic valve is likely normal. Tricuspid Valve There is mild tricuspid valve regurgitation. There is no evidence of pulmonary hypertension. Great Vessels The asc aorta and aortic arch are normal in size. Small plaque is seen in the sino tubular ridge. Venous The inferior vena cava is normal in size and collapses greater than 50% with inspiration. Pericardium/Pleural There is no evidence of pericardial effusion. Prior Study Comparison No prior study available for comparison. Recommendations, Care & Conclusions No obvious valvular pathology seen on this study. Measurements 2D Linear Measurements IVSd: 1.20 0.6-0.9/0.6-1.0 cm LVIDd: 3.20 3.9-5.3/4.2-5.9 cm LVIDd Index: 1.57 2.4-3.2/2.2-3.1 cm/m2 LVIDs: 2.13 2.0-3.6 cm LVPWd: 0.89 0.7-1.1 cm LA Diam: 2.80 2.7-3.8/3.0-4.0 cm LAIDs Index: 1.37 1.5-2.3 cm/m2 LV Mass: 119.53 67-162/88-224 g LV Mass Index: 58.59 43-95/49-115 g/m2 LVOT Diam: 2.00 3.0+(-)1.3 cm 2D Systolic Function EF 4C: 77.80 >55% EF 2C: 53.00 >55% EF BiP: 68.10 >55% Mitral Valve MV Pk E: 0.87 MV PK A: 0.84 MV Decel Time: 311.00 E/A: 1.00 E'Lateral: 10.80 E'Medial: 9.25 E/E' Med: 9.40 E/E' Lat: 8.10 PHT: 91.00 MVA PHT: 2.42 Decel [place]: 2.81 Aortic Valve AoV Pk Kaushik: 1.83 AoV Mn Kaushik: 1.20 AoV VTI: 0.35 AoV Pk Grad: 13.00 Aov Mn Grad: 7.00 CONCEPCION Cont.VTI: 2.47 LVOT LVOT Pk Kaushik: 1.58 LVOT Mn Kaushik: 0.94 LVOT VTI: 0.27 LVOT Pk Grad: 10.00 LVOT Mn Grad: 4.00 LVOT Diam: 2.00 LVOT Area: 3.14 Diastolic Function MV Pk E: 0.87 MV Pk A: 0.84 E/A: 1.00 E'Medial: 9.25 E/E' Med: 9.40 E' Laterial: 10.80 E/E' Lat: 8.10 Right Ventricle TAPSE (mm): 21.60 TVS' Kaushik: 12.80 Tricuspid Valve TR Pk Kaushik: 2.55 TR Pk Grad: 26.00 RA Press: 3.00 RVSP: 29.00 Great Vessels Aorta Sinus of Valsalva: 2.93 2.0-3.[address] [place]: 2.13 1.7-3.4 cm Ao Asc: 3.30 2.1-3.4 cm Ao Arch: 2.80 Updated in Other Vendor System with Status of Final Jose Manuel Funez MD electronically signed on 03/23/2025 3:25:20 PM with status of Final
== END ==
LOC: HO.CARD 13:07
PROVIDERS: PCP Nurse Practitioner Family; Visit Provider Nurse Practitioner Family
DX: R01.1 Cardiac murmur, unspecified (principal)
CPT/HCPCS: 93306; Q9957

== ENCOUNTER → 2025-03-23 13:10 | Outpatient (BNV) | payer OTHER, SELFPAY | PROVIDERS: PCP Nurse Practitioner Family; Visit Provider Internal Medicine | DX: I42.2 Other hypertrophic cardiomyopathy (principal); I36.1 Nonrheumatic tricuspid (valve) insufficiency | CPT/HCPCS: 93306 ==

== ENCOUNTER 2025-04-13 12:45 | Outpatient (REF) | payer OTHER, SELFPAY | END 2025-04-13 12:46 | disposition home or self-care (01) | LOC: HO.MAMMO 12:45 | PROVIDERS: PCP Nurse Practitioner Family; Visit Provider Nurse Practitioner Family | DX: Z12.31 Encounter for screening mammogram for malignant neoplasm of breast (principal) | CPT/HCPCS: 77063; 77067 ==

== ENCOUNTER → 2025-04-13 12:45 | Outpatient (BNV) | payer OTHER, SELFPAY | PROVIDERS: PCP Nurse Practitioner Family; Visit Provider Internal Medicine | DX: Z12.31 Encounter for screening mammogram for malignant neoplasm of breast (principal) | CPT/HCPCS: 77063; 77067 ==

== ENCOUNTER 2025-04-14 11:04 | Outpatient (REF) | payer OTHER, SELFPAY ==
--- NOTE | 2025-04-14 11:07 | PFT_ITS ---
Flows: FEV1: 81 % of predicted at 2.28 L FVC: 74 % of predicted at 2.66 L FEV1/FVC: 86 % Bronchodilator response: Absent Volumes: Total lung capacity: 70 % of predicted at 3.89 L Residual volume: 72 % of predicted at 1.24 L Slow vital capacity: 69 % of predicted at 2.65 L Expiratory reserve volume: 18 % of predicted at 0.18 L Diffusion capacity: Mildly decreased, corrects to normal after adjustment for alveolar ventilation. Impression: Moderate restrictive ventilatory defect with no bronchodilator response. Decreased expiratory reserve volume suggests extrathoracic restriction likely secondary to abdominal obesity. Combination of decreased diffusion capacity with restrictive ventilatory defect suggests underlying pulmonary parenchymal disease. Clinical correlation is advised. MTDD
[2025-04-14 11:45] VITALS: PULSE 73; O2SAT 97
== END 2025-04-14 11:05 | disposition home or self-care (01) ==
LOC: HO.RESP 11:04
PROVIDERS: PCP Nurse Practitioner Family; Visit Provider Nurse Practitioner Family
DX: R06.2 Wheezing (principal)
CPT/HCPCS: 94010; 94640; 94727; 94729

== ENCOUNTER → 2025-04-14 11:07 | Outpatient (BNV) | payer OTHER, SELFPAY | PROVIDERS: PCP Nurse Practitioner Family; Visit Provider Internal Medicine Pulmonary Disease | DX: R06.2 Wheezing (principal) | CPT/HCPCS: 94060; 94727; 94729 ==

== ENCOUNTER 2025-04-21 10:27 | Outpatient (REF) | payer OTHER, SELFPAY ==
--- NOTE | ~2025-04-21 | US_ITS ---
EXAMINATION: US ABDOMEN COMPLETE CLINICAL INFORMATION: Unspecified abdominal pain.. COMPARISON: Correlated to CT dated February 21, 2022. TECHNIQUE: Real-time ultrasound of the abdomen using grayscale technique. FINDINGS: PANCREAS: No peripancreatic fluid collection. ABDOMINAL AORTA: The proximal, mid, and distal segments are normal in caliber. INFERIOR VENA CAVA: Visualized portions are normal. LIVER: Liver measures 18 cm by the technologist. No nodular surface. Increased/coarse echotexture. There is a 0.9 cm and a 1.8 cm hypoechoic lesions in the left and right hepatic lobe, respectively. No intrahepatic biliary ductal dilatation. Main portal vein is patent with normal hepatopedal flow direction. GALLBLADDER: Fluid-filled. No pericholecystic fluid collection or gallbladder wall thickening. COMMON BILE DUCT: 5 mm. RIGHT KIDNEY: 11 cm. Normal echotexture. Normal renal cortical thickness. No hydronephrosis. No gross solid or cystic lesion detected by the technologist.. LEFT KIDNEY: 11 cm. Normal echotexture. Normal renal cortical thickness. No hydronephrosis. No gross solid or cystic lesion detected. SPLEEN: 11 cm. No focal lesion. FREE FLUID: None. US/US abdomen complete IMPRESSION: Hepatomegaly and likely steatosis. 2 Hypoechoic lesions. Statistically matter present hemangioma. Recommend further imaging evaluation with dynamic enhanced MRI liver versus triple phase liver CT No cholelithiasis. No hydronephrosis. No ascites.. Electronically signed by: Pernell Parkinson MD 04/21/2025 12:05 PM EDT
== END 2025-04-21 10:28 | disposition home or self-care (01) ==
LOC: HO.US 10:27
PROVIDERS: PCP Nurse Practitioner Family; Visit Provider Nurse Practitioner Family
DX: R10.9 Unspecified abdominal pain (principal)
CPT/HCPCS: 76700

== ENCOUNTER → 2025-04-21 10:29 | Outpatient (BNV) | payer OTHER, SELFPAY | PROVIDERS: PCP Nurse Practitioner Family; Visit Provider Radiology Diagnostic Radiology | DX: R16.0 Hepatomegaly, not elsewhere classified (principal) | CPT/HCPCS: 76700 ==

== ENCOUNTER 2025-04-22 07:20 | Outpatient (AMB) | payer OTHER, SELFPAY ==
--- NOTE | 2025-04-22 08:16 | MHC.PC.OV ---
Intake Visit Reasons: 2M F/U Allergies coconut Allergy (Verified 02/19/25 17:47) Facial Swelling walnut Allergy (Verified 02/19/25 17:47) Chest Pain PEACHES Allergy (Uncoded 02/19/25 17:47) Swelling PLUM Allergy (Uncoded 02/19/25 17:47) Facial Swelling Tobacco use date assessed: 02/19/25 Dental Screening Dental Screen Date: 02/19/25 HPI 2M F/U HPI Details Patient is here for 2 month follow-up. There was a prior history of asthma. I did order some PFTs. There was a moderate parenchymal disease, and obesity is not to play a factor. She does report that the albuterol house but it seems she is using it too often. Sometimes several times a day. I am going to try her on a maintenance inhaler in the form of Symbicort, she notes that rinse her mouth out after each use. She is already set up for a low-dose CAT scan and because of her smoking history, I will also get into Pulmonary for pulmonary assessment related to the PFTs. Abdominal ultrasound rate recently showed possible hemangiomas, is recommended to get a MRI, which was ordered. Patient denies any fevers, chills, chest pain, increased shortness of breath, or any recent wheezing. [facility] Medical History (Updated 04/22/25 @ 08:13 by DEMARCUS Ardon) Personal history of nicotine dependence TMJ (temporomandibular joint syndrome) HTN (hypertension) Hypothyroid Family History Father No problems noted. Mother No problems noted. Social History Housing: Apartment Patient Tobacco Use Status: Former Tobacco user e-Cigarette/Vaping Use: Never Used Second Hand Smoke Exposure: No service: No Current occupational status: employed Current occupation: [employer] Current occupational exposures/hazards: No Cognitive needs: No Hearing needs: No Vision needs: No Questionnaire Thrive Questionnaire Date Thrive assessed: 02/12/25 I am a: Patient What is your living situation today?: I have a steady place to live Within the past 12 months, did the food you bought not last and you didn't have the money to get more?: Never true Within the past 12 months, did you worry whether your food would run out before you got money to buy more?: Never true Do you have trouble paying for medicines?: No Do you have trouble getting transportation to medical appointments?: No Do you have trouble paying your heating and electricity bill?: No Do you have trouble taking care of your child, family member or friend?: No Do you have trouble with day-to-day activities such as bathing, preparing meals, shopping, managing finances, etc.?: No Are you currently unemployed and looking for a job?: No Are you interested in more education?: I choose not to answer this question Please select the resources that you would like help with: None THRIVE Score: 0 GURDEEP-7 AMB Questionnaire GURDEEP-7 Date GURDEEP - 7 assessed: 02/19/25 Source: Developed by Drs. Janes Lopez, Susanna Riggins, Leonardo Gerber and colleagues, with an educational elaine from [employer]. Physical exam (Primary Care) Tobacco/Smoking Status: Tobacco use Status Tobacco use date assessed 02/19/25 02/19/25 14:54 Patient Tobacco Use Status Former Tobacco user 02/19/25 14:51 e-Cigarette/Vaping Use Never Used 02/19/25 14:51 Thrive Assessment: Date of Thrive Assessment Date Thrive assessed 02/12/25 04/15/25 15:20 Const General: cooperative, healthy appearing, comfortable and no acute distress Telehealth Telehealth Telehealth Platform: Apportable Telehealth method: video Patient verbally consented to treatment: Yes Patient verbally consented to billing insurance company: Yes Patient informed of any privacy concerns related to visit: Yes Minutes spent on Phone/Video with Pt.: 12 Coding Level of Care Code Tele Est Pt Level 4 (89780) Diagnoses Liver lesion K76.9 Asthma J45.909 Abnormal PFT R94.2 Personal history of nicotine dependence Z87.891 Assessment & Plan Assessment & Plan (1) Liver lesion: Code(s): K76.9 - Liver disease, unspecified Category: Medical (2) Asthma: Code(s): J45.909 - Unspecified asthma, uncomplicated Category: Medical (3) Abnormal PFT: Code(s): R94.2 - Abnormal results of pulmonary function studies Category: Medical (4) Personal history of nicotine dependence: Code(s): Z87.891 - Personal history of nicotine dependence Category: Medical Plan . Orders: Referrals Pulmonology Referral R94.2 - Abnormal results of pulmonary function studies Medications: New budesonide-formoterol 80-4.5 mcg/actuation (Symbicort) 1 puff inhalation BID 10.2 grams 0RF
== END 2025-04-22 08:58 | disposition home or self-care (01) ==
LOC: HO.HMCC 07:20
PROVIDERS: PCP Nurse Practitioner Family; Visit Provider Nurse Practitioner Family
DX: K76.9 Liver disease, unspecified (principal); J45.909 Unspecified asthma, uncomplicated; R94.2 Abnormal results of pulmonary function studies; Z87.891 Personal history of nicotine dependence

== ENCOUNTER → 2025-04-22 07:20 | Outpatient (BNVA) | payer OTHER, SELFPAY | PROVIDERS: PCP Nurse Practitioner Family; Visit Provider Nurse Practitioner Family | DX: Z13.89 Encounter for screening for other disorder (principal) ==

== ENCOUNTER 2025-04-27 08:48 | Outpatient (REF) | payer OTHER, SELFPAY ==
[2025-04-27 12:52] LABS: Appearance Urine Clear; Color Urine Yellow; Glucose Urine UA Negative (Negative); Leukocyte Esterase Urine Trace (Negative); Nitrite Urine Negative (Negative); PH 5.5 (5.0-9.0); Specific Gravity - Urine 1.025 (1.005-1.025); UMIC TRIGGER UACC YES; Urine Blood Negative (Negative); Urine Ketones Negative (Negative); Urine Protein Negative (Neg-Trace)
[2025-04-27 12:56] LABS: Urine Cytology See Pathology rpt
[2025-04-27 12:59] LABS: Bacteria Urine None Seen (None Seen); Hyaline Casts Urine 0-2 /LPF (0-2); RBC Urine 0-2 /HPF (0-2); Squamous Epithelial Cell Urine 0-2 /HPF (0-2); WBC Urine 0-5 /HPF (0-5)
[2025-04-27 13:24] LABS: Alanine Aminotransferase 14 U/L (0-31); Albumin Level 4.6 g/dL (3.5-5.0); Alkaline Phosphatase 67 U/L (39-117); Anion Gap 13 (12-20); Aspartate Amino Transferase 23 U/L (5-31); Bilirubin Total 0.5 mg/dL (0.0-1.0); Blood Urea Nitrogen 26 mg/dL (9-16); Calcium 9.8 mg/dL (8.4-10.2); Carbon Dioxide 24 mmol/L (22-29); Chloride 107 mmol/L (96-108); Cholesterol 236 mg/dL (<200); Estimated Glomerular Filt Rate > 60; Glucose Fasting 96 mg/dL (60-99); HDL Cholesterol 47 mg/dL (>40); LDL Cholesterol Calculated 158 mg/dL (<100); Potassium 4.7 mmol/L (3.3-5.1); Sodium 139 mmol/L (135-145); Total Protein 6.9 g/dL (6.5-8.0); Triglycerides 155 mg/dL (<150)
== END 2025-04-27 08:49 | disposition home or self-care (01) ==
LOC: HO.HMGCLDS 08:48
PROVIDERS: PCP Nurse Practitioner Family; Visit Provider Nurse Practitioner Family
DX: E78.5 Hyperlipidemia, unspecified (principal); R31.29 Other microscopic hematuria
CPT/HCPCS: 36415; 80053; 80061; 81001; 87086; 88112

== ENCOUNTER 2025-06-12 09:23 | Outpatient (AMB) | payer OTHER, SELFPAY ==
--- NOTE | 2025-06-12 07:37 | MHC.OFFVIS ---
Intake Visit Reasons: Former Smoker Allergies coconut Allergy (Verified 02/19/25 17:47) Facial Swelling walnut Allergy (Verified 02/19/25 17:47) Chest Pain PEACHES Allergy (Uncoded 02/19/25 17:47) Swelling PLUM Allergy (Uncoded 02/19/25 17:47) Facial Swelling HPI HPI Former Smoker: Details: Initial visit for this 54yo former smoker with a 30PYH. Patient started smoking at age 18 for 31 years at 1ppd. She quit 2019. . Notes marijuana use once a week. Denies second hand smoke exposure. Denies exposure to chemicals or substances like asbestos. . Denies known family history of lung cancer. Denies personal history of cancers. Denies chest CT in last year. . Denies recent travel outside the [place]. Denies recent respiratory illness or recent hospitalization for respiratory issues. Denies testing positive for COVID. Admits receiving COVID Vaccine. . Denies fever, chills, new/worsening cough, hemoptysis, hoarseness or dysphagia. Denies significant chest pain, significant dyspnea or unintentional weight loss. Patient Lung Cancer Screening Questionnaire reviewed with patient by provider. . Shared Decision Making Completed. Patient meets criteria. Discussed in detail with patient, the risk vs benefit of LDCT screening. Patient consents to proceed with scan. Discussed and encouraged continued smoking cessation. [facility] Medical History (Updated 06/12/25 @ 09:38 by Elo Frias PA-C) Hypothyroid HTN (hypertension) Dyslipidemia Personal history of nicotine dependence TMJ (temporomandibular joint syndrome) Family History Father No problems noted. Mother No problems noted. Social History (Updated 06/12/25 @ 09:38 by Elo Frias PA-C) Housing: Apartment Patient Tobacco Use Status: Former Tobacco user Years Smoked: (onset 18yo, 1ppd x 31yrs, 30pyh - quit 2019) e-Cigarette/Vaping Use: Never Used Second Hand Smoke Exposure: No service: No Current occupational status: employed Current occupation: [employer] Current occupational exposures/hazards: No Cognitive needs: No Hearing needs: No Vision needs: No Assessment & Plan Assessment & Plan (1) Personal history of nicotine dependence: Comment: (onset 18yo, 1ppd x 31yrs, 30pyh - quit 2019) Code(s): Z87.891 - Personal history of nicotine dependence Category: Medical Plan: - SDM visit completed today in office. - Patient meets criteria for LDCT for lung cancer screening purposes and is asymptomatic. - Smoking cessation counseling offered. Patients can always call [phone]. - Will arrange for a LDCT scan of the chest for screening purposes at [facility]. - Risks, benefits, and alternatives were discussed in detail and the patient agrees to proceed. - Risks discussed include but are not limited to: radiation exposure, anxiety during testing and while awaiting results, false negatives, false positives and possibility of additional intervention such as further imaging or surgical procedures for benign disease. - Benefits are obviously detection of lung cancer at an early stage which can lead to improved outcomes. - Discussed the importance of screening program compliance with adherence to yearly LDCT scan as scheduled - or sooner interval scans for personalized screening regimen. - Discussed follow up plan. Our office will send a letter discussing results and if needed set up phone call and office visit based on CT findings. - Patient educated on results categorization and the management decisions for suspicious findings potentially found on the screening LDCT scan. Any patient with a Lung RADS score of 3 or 4 will be reviewed by a multidisciplinary team at [facility] to form a plan of action in regards to scan findings. - If further work up is warranted for a suspicious lung finding this will be followed by the Lung Cancer Screening program in conjunction with the Thoracic Surgery Department at [facility]. - A copy of the office note and LDCT will be sent to the patient's PCP - as well as documentation on any associated further plans of care. - Incidental findings on LDCT are the PCP's responsibility. These findings are indicated with an S finding on the LDCT Assessment. A note discussing the findings will be sent to the PCP who is then responsible for further management. - All questions answered.? Coding Level of Care Code Lung Cancer Screening G0296 Diagnoses Personal history of nicotine dependence Z87.891
== END 2025-06-12 10:03 | disposition home or self-care (01) ==
LOC: HO.HPS 09:24
PROVIDERS: PCP Nurse Practitioner Family; Referring Provider Nurse Practitioner Family; Visit Provider Physician Assistant Medical
DX: Z87.891 Personal history of nicotine dependence (principal)
CPT/HCPCS: G0296

== ENCOUNTER 2025-06-12 09:45 | Outpatient (REF) | payer OTHER, SELFPAY ==
--- NOTE | ~2025-06-12 | CT_ITS ---
CLINICAL HISTORY: Z87.891 - Personal history of nicotine dependence CT lung cancer screening (LDCT) Comparison: None provided Technique: Axial CT images of the chest using low-dose technique. Referring provider counseled the patient on shared decision-making for LDCT screening. Additional counseling was provided on smoking cessation. Effective radiation dose total: DLP 51 mGycm, CTDIvol 1.6 mGy. Findings: 2 mm left lower lobe nodule on image 87. Mild peripheral interstitial scarring. Very mild emphysematous changes within the right upper lobe. Coronary artery calcifications: Mild Limited upper abdomen: Unremarkable Other: None Impression: Category 2: Benign appearance or behavior. Continue annual screening. ##L2 ## Category 1: Normal; continue annual screening Category 2: Benign appearance or behavior, continue annual screening Category 3: Probably benign, [address] recommended Category 4A: Suspicious, [address] recommended; may consider PET/CT Category 4B: Suspicious, Additional diagnostics and/or tissue sampling recommended Category 4X: Suspicious, Additional diagnostics and/or tissue sampling recommended Category 0: Recalls (incomplete screen due to Incomplete coverage, Noise, Respiratory motion, Expiration, Obscured by acute abnormality) This document has been electronically signed by: Annabelle Casas MD on 06/12/2025 17:09:31
== END 2025-06-12 09:46 | disposition home or self-care (01) ==
LOC: HO.CT 09:45
PROVIDERS: PCP Nurse Practitioner Family; Visit Provider Physician Assistant Medical
DX: Z12.2 Encounter for screening for malignant neoplasm of respiratory organs (principal); Z87.891 Personal history of nicotine dependence
CPT/HCPCS: 71271; G0296

== ENCOUNTER → 2025-06-12 09:47 | Outpatient (BNV) | payer OTHER, SELFPAY | PROVIDERS: PCP Nurse Practitioner Family; Visit Provider Radiology Diagnostic Radiology | DX: Z87.891 Personal history of nicotine dependence (principal) | CPT/HCPCS: 71271 ==

== ENCOUNTER 2025-07-27 08:56 | Outpatient (REF) | payer OTHER, SELFPAY | END 2025-07-27 08:57 | disposition home or self-care (01) | LOC: HO.LAB 08:56 | PROVIDERS: PCP Nurse Practitioner Family; Visit Provider Urology | DX: R31.29 Other microscopic hematuria (principal); Z87.891 Personal history of nicotine dependence | CPT/HCPCS: 81003; 88112; 99202 ==

== ENCOUNTER 2025-07-27 08:56 | Outpatient (AMB) | payer OTHER, SELFPAY ==
--- NOTE | 2025-07-27 09:03 | A.OFFVIS_ITS ---
Intake Visit Reasons: history Microscopic Hematuria Intake Note: New patient presents today for initial visit for microscopic hematuria Urology Medication: Blood Thinner: Antibiotic Allergies: Allergies coconut Allergy (Verified 07/27/25 09:03) Facial Swelling walnut Allergy (Verified 07/27/25 09:03) Chest Pain PEACHES Allergy (Uncoded 02/19/25 17:47) Swelling PLUM Allergy (Uncoded 02/19/25 17:47) Facial Swelling Medication List - Last Reconciled 07/27/25 by Gary Phillips MD albuterol sulfate 90 mcg/actuation (Ventolin HFA) 1 inh inhalation QID PRN atorvastatin 10 mg PO BEDTIME budesonide-formoterol 80-4.5 mcg/actuation (Symbicort) 1 puff inhalation BID fluoxetine 40 mg PO DAILY levothyroxine 100 mcg PO DAILY lisinopril-hydrochlorothiazide 20-12.5 mg 1 tab PO DAILY loratadine (Claritin) 10 mg PO DAILY lorazepam 0.5 mg PO BID 30 days HPI Comments Details: 07/27/25--Elis is a 55 year old female who is here for evaluation for microscopic hematuria. Personal history of nicotine use quit in 2019. History of Present Illness The patient is a 55-year-old female presenting with evaluation for microscopic hematuria. The patient has a history of microscopic hematuria, identified through urinalysis today showing 1+ blood, with negative leukocytes. She reports no visible blood in her urine and had a similar evaluation approximately 20 years ago, which revealed no significant findings at that time. An abdominal ultrasound conducted on April 21, 2025, showed normal kidney appearance with no gross solid or cystic lesions or kidney stones visualized. The patient has a personal history of nicotine use, which she quit in 2019. The patient's daughter had a surgical procedure for ureteral re-implantation due to ureteral reflux, which the patient mentioned might be hereditary, but she is not aware that she has any congenital urinary anomalies. Results - Urinalysis: 1+ blood, - Abdominal ultrasound (04/21/25): Normal kidneys, no gross solid or cystic lesions, no kidney stones Plan 1. Microscopic Hematuria - Plan to send urine for cytology to evaluate for abnormal cells. - Schedule follow-up for office cystoscopy to examine the bladder. - Order a CT scan Urogram to further evaluate the kidneys and bladder. - BUN/creat-- ensure kidney function is normal before proceeding with the CT scan. [facility] Medical History Hypothyroid HTN (hypertension) Dyslipidemia Personal history of nicotine dependence TMJ (temporomandibular joint syndrome) Family History Father No problems noted. Mother No problems noted. Social History Housing: Apartment Patient Tobacco Use Status: Former Tobacco user Years Smoked: (onset 18yo, 1ppd x 31yrs, 30pyh - quit 2019) e-Cigarette/Vaping Use: Never Used Second Hand Smoke Exposure: No service: No Current occupational status: employed Current occupation: [employer] Current occupational exposures/hazards: No Cognitive needs: No Hearing needs: No Vision needs: No Review of Systems Const All systems reviewed & are unremarkable except as noted in HPI and below Reports no additional complaints Eyes Reports no additional complaints ENT Reports no additional complaints Card Reports no additional complaints Resp Reports no additional complaints GI Reports no additional complaints Reports as per HPI Musc Reports no additional complaints Skin/Breast Reports system reviewed and no additional complaints, except as documented Neuro Reports no additional complaints Psych Reports no additional complaints Endo Reports no additional complaints Delvis/Lymph Reports no additional complaints Aller/Immun Reports no additional complaints Physical Exam Const General: cooperative, healthy appearing and no acute distress Orientation/consciousness: patient oriented x3 HEENT Head: Yes normal to inspection, Yes normocephalic and Yes atraumatic Eyes Conjunctivae: conjunctivae normal Neck Neck: Yes normal visual inspection and Yes trachea midline Chest Chest palpation & inspection: normal inspection of the chest Resp Effort & Inspection: normal respiratory effort GI Inspection: Yes normal to inspection Neuro General: patient oriented x3 Psych Appearance: grossly normal Results Reviewed Results Reviewed: Date of Service: 04/21/25 US ABDOMEN COMPLETE CLINICAL INFORMATION: Unspecified abdominal pain.. COMPARISON: Correlated to CT dated February 21, 2022. TECHNIQUE: Real-time ultrasound of the abdomen using grayscale technique. FINDINGS: PANCREAS: No peripancreatic fluid collection. ABDOMINAL AORTA: The proximal, mid, and distal segments are normal in caliber. INFERIOR VENA CAVA: Visualized portions are normal. LIVER: Liver measures 18 cm by the technologist. No nodular surface. Increased/coarse echotexture. There is a 0.9 cm and a 1.8 cm hypoechoic lesions in the left and right hepatic lobe, respectively. No intrahepatic biliary ductal dilatation. Main portal vein is patent with normal hepatopedal flow direction. GALLBLADDER: Fluid-filled. No pericholecystic fluid collection or gallbladder wall thickening. COMMON BILE DUCT: 5 mm. RIGHT KIDNEY: 11 cm. Normal echotexture. Normal renal cortical thickness. No hydronephrosis. No gross solid or cystic lesion detected by the technologist.. LEFT KIDNEY: 11 cm. Normal echotexture. Normal renal cortical thickness. No hydronephrosis. No gross solid or cystic lesion detected. SPLEEN: 11 cm. No focal lesion. FREE FLUID: None. US/US abdomen complete IMPRESSION: Hepatomegaly and likely steatosis. 2 Hypoechoic lesions. Statistically matter present hemangioma. Recommend further imaging evaluation with dynamic enhanced MRI liver versus triple phase liver CT No cholelithiasis. No hydronephrosis. No ascites.. Assessment & Plan Assessment & Plan (1) Microscopic hematuria: Comment: was worked up for micro hem in the past (including cytology and cystoscopy) up to 20 years ago Code(s): R31.29 - Other microscopic hematuria Category: Medical (2) Personal history of nicotine dependence: Comment: (onset 18yo, 1ppd x 31yrs, 30pyh - quit 2019) Code(s): Z87.891 - Personal history of nicotine dependence Category: Medical Plan Plan 1. Microscopic Hematuria - Plan to send urine for cytology to evaluate for abnormal cells. - Schedule follow-up for office cystoscopy to examine the bladder. - Order a CT scan Urogram to further evaluate the kidneys and bladder. - BUN/creat-- ensure kidney function is normal before proceeding with the CT scan. Orders: Orders CT urogram Today R31.29 - Other microscopic hematuria Blood Urea Nitrogen Today R31.29 - Other microscopic hematuria Creatinine Today R31.29 - Other microscopic hematuria Medications: Discontinued amoxicillin-pot clavulanate 875-125 mg Discontinued Reason: Patient Completed Course 1 tab PO BID 10 days 20 tabs 0RF Coding Level of Care Code New Pt Level 4 (60855) Diagnoses Microscopic hematuria R31.29 Personal history of nicotine dependence Z87.891
--- OUTSIDE RECORDS SUMMARY | 2025-07-27 10:24 | XMS_ITS | Clinical Summary ---
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 Active FLUoxetine (PROZAC) 20 MG capsule Take 20 mg by mouth daily. Active levothyroxine (SYNTHROID, LEVOTHROID) 100 MCG tablet Take 100 mcg by mouth every morning. Active acetaminophen (TYLENOL) 650 MG CR tablet Take 650 mg by mouth every 8 (eight) hours as needed for pain (specific location in comments). Active Active Problems No known active problems Family History Medical History Relation Comments CV disease Father 2 Diabetes mellitus Mother 2 Hypertension Mother 2 Relation Status Comments Father 1 Alive Father 2 Mother 1 Alive Mother 2 Social History Tobacco Use Types Packs/Day Years Used Date Smoking Tobacco: Former Cigarettes Smokeless Tobacco: Never Tobacco Cessation:Counseling Given: Not Answered Education Answer Date Recorded Are you interested in more education? Not on shannon e 03/02/2023 Are you concerned about learning? Not on file 03/02/2023 No 03/02/2023 No 03/02/2023 Digital Access Answer Date Recorded No 03/31/2023 No 03/31/2023 Reliable internet access at home? Not on file 03/31/2023 Device with a working camera? Not on file Comments Unknown Sex and Gender Information Value Date Recorded Sex Assigned at Not on file Legal Sex Female 9:35 PM EDT Gender Identity Not on file Sexual Orientation Not on file Last Filed Vital Signs Vital Sign Reading Time Taken Comments Blood Pressure 159/95 04/15/2024 9:30 AM EDT Pulse 71 04/15/2024 9:30 AM EDT Temperature 36.8 C (98.3 F) 04/15/2024 9:30 AM EDT Respiratory Rate 17 04/15/2024 9:30 AM EDT Oxygen Saturation 98% 04/15/2024 9:30 AM EDT Inhaled Oxygen Concentration - - Weight 90.7 kg (200 lb) 04/15/2024 9:30 AM EDT Height 167.6 cm (5' 6 ) 04/15/2024 9:30 AM EDT Body Mass Index 32.28 04/15/2024 9:30 AM EDT Plan of Treatment Health Maintenance Due Date Last Done Comments Adult Td,Tdap Booster 1970 CREATININE LEVEL 1970 LIPID PANEL 1970 POTASSIUM LEVEL 1970 TSH LEVEL 1970 DEPRESSION SCREENING 1982 SMOKING Hx and SMOKELESS TOB ACCO SCREENING 1983 HEPATITIS C SCREENING 1988 HIV ONE-TIME SCREENING (18-6 5 YEARS) 1988 PAP SMEAR 1991 SCREENING FOR DIABETES 2005 MAMMOGRAM 2010 COLOGUARD 2015 COLONOSCOPY 2015 COLORECTAL CANCER SCREENING 2015 FIT TEST 2015 FOBT 2015 SIGMOIDOSCOPY 2015 VIRTUAL COLONOSCOPY 2015 PNEUMOCOCCAL VACCINES (50+ y ears) (1 of 1 - PCV) 2020 ZOSTER VACCINES (1 of 2) 2020 INFLUENZA VACCINE (#1) 2025 COVID-19 VACCINE (2 - 2024-2 6 season) 2025 02/12/2021 HEPATITIS A VACCINES Aged Out No long er eligible based on patient's age to complete this topic HIB VACCINES Aged Out No longer eligi ble based on patient's age to complete this topic MENINGOCOCCAL VACCINES (ACWY) Aged Out No longer eligible based on patient's age to complete this topic MENINGOCOCCAL VACCINES (B) Aged Out N o longer eligible based on patient's age to complete this topic Medical Devices Not on file Insurance WELL[employer] NON NSPG PCP S[employer]VER [employer]ITY CONNECTORCARE [employer] NON NSPG PCP S[employer]VER [employer] CONNECTORCARE [employer] NON NSPG PCP SILVER [employer] CONNECTORCARE [employer] NON NSPG PCP SILVER CLARITY [facility]CTOR[facility] P[facility] SILVER CLARITY CONNECTORCARE [facility] NON NSPG PCP SILVER CLARITY CONNECTORCARE [employer] Care Teams Stemming Machine Operator Relationship Specialty Start Date End Date Jethro Gupta NP [address] [facility] [place] [id number] PCP - General Nurse Practitioner 04/11/23 Additional Source Comments The information contained in this document represents components of the legal health record. It is not the complete legal health record.[facility]
== END 2025-07-27 09:39 | disposition home or self-care (01) ==
LOC: HO.HUSH 08:56
PROVIDERS: PCP Nurse Practitioner Family; Visit Provider Urology
DX: R31.29 Other microscopic hematuria (principal); Z87.891 Personal history of nicotine dependence
CPT/HCPCS: 99204

== ENCOUNTER 2025-09-07 09:54 | Outpatient (AMB) | payer OTHER, SELFPAY ==
--- NOTE | 2025-09-07 10:01 | A.OFFPC_ITS ---
Vital Signs 09/07/25 10:02 Height 5 ft 6 in Weight 205 lb BMI 33.1 BP 114/70 Blood Pressure Location Lt brachial Position Sitting Pulse 84 Pulse Source Pulse Oximeter Temp 98.0 F Pulse Oximetry (%) 98 Oxygen Delivery Method Room Air Intake Visit Reasons: 6m follow up Infectious Disease Technician Required: No Accompanied by: Self / Same As Patient Allergies coconut Allergy (Verified 09/07/25 10:28) Facial Swelling walnut Allergy (Verified 09/07/25 10:28) Chest Pain PEACHES Allergy (Uncoded 09/07/25 10:28) Swelling PLUM Allergy (Uncoded 09/07/25 10:28) Facial Swelling Medication List - Last Reconciled 09/07/25 by FRANCES Ardon- albuterol sulfate 90 mcg/actuation (Ventolin HFA) 1 inh inhalation QID PRN atorvastatin 10 mg PO BEDTIME budesonide-formoterol 80-4.5 mcg/actuation (Symbicort) 1 puff inhalation BID fluoxetine 40 mg PO DAILY levothyroxine 100 mcg PO DAILY lisinopril-hydrochlorothiazide 20-12.5 mg 1 tab PO DAILY loratadine (Claritin) 10 mg PO DAILY lorazepam 0.5 mg PO BID 30 days Tobacco use date assessed: 09/07/25 Dental Screening Dental Screen Date: 09/07/25 Did you have a dental visit in the last 12 months?: No Did you have a dental problem in the last 6 months where you did not have access to dental care?: No Was dental information given to patient?: Patient has dentist HPI 6m follow up HPI Details Chief Complaint Patient presents for a follow-up visit for management of dyslipidemia. History of Present Illness The patient is a 55-year-old female presenting for a follow-up visit for dyslipidemia. She reports inconsistent adherence to her atorvastatin, frequently forgetting to take it at night. For health maintenance, the patient is enrolled in a low-dose CT scan program. Social History Health Maintenance The patient is enrolled in a low-dose CT scan program. She has a physical examination already scheduled for a future date. Review of Systems - General: Denies headache. - Cardiovascular: Denies chest pain. - Respiratory: Denies shortness of breat h. - Eyes: Denies blurred vision. - Musculoskeletal: Denies edema. Physical Exam General: Cooperative, healthy appearing, comfortable, no acute distress and well developed, obese Orientation: Patient oriented x3 Limitations: No limitations Head: Normal to inspection Ears: Hearing grossly normal bilaterally Nose: Normal external nose present Face and sinus: Normal facial exam Eyes: Appearance normal, both eyes and all related structures Neck: Normal visual inspection and Yes full ROM Respiratory: Normal respiratory effort and able to speak in complete sentences. Clear to auscultation bilaterally Cardiovascular: Regular rate and rhythm. Normal S1 and S2 GI: Normal to inspection. Soft to palpation and nontender Skin: No rashes or lesions noted Neuro: Patient oriented x3 Extremities: No edema, normal to inspection Results Plan 1. Dyslipidemia The patient has been non-adherent with her atorvastatin, reporting that she often forgets to take it at night. The importance of medication adherence was reemphasized, and the patient will set a reminder to improve consistency. She will continue taking the medication for at least two consecutive months, after which a repeat lipid panel will be ordered to assess efficacy. Discussion Notes I discussed the follow-up for dyslipidemia with the patient. I reemphasized the importance of taking her atorvastatin consistently, as she has been forgetting it at night. She agreed to set a reminder and will take it for at least two months before we repeat her lipid panel. We confirmed she has a physical exam already scheduled, and that labs will be done after the two-month period of consistent medication use. Patient Instructions - Take your atorvastatin every night as prescribed. Setting a reminder may help you remember. - It is important to take this medicatio n consistently for at least two months. - We will check your cholesterol with a blood test after you have taken the medicine for two months. - Keep your appointment for your [facility] ed physical exam. [facility] Medical History Hypothyroid HTN (hypertension) Dyslipidemia Personal history of nicotine dependence TMJ (temporomandibular joint syndrome) Family History Father No problems noted. Mother No problems noted. Social History Housing: Apartment Patient Tobacco Use Status: Former Tobacco user Years Smoked: (onset 18yo, 1ppd x 31yrs, 30pyh - quit 2020) e-Cigarette/Vaping Use: Never Used Second Hand Smoke Exposure: No service: No Current occupational status: employed Current occupation: [employer] Current occupational exposures/hazards: No Cognitive needs: No Hearing needs: No Vision needs: No Questionnaire PHQ-9 Over the last 2 weeks, how often have you been bothered by any of the following problems? 1. Little interest or pleasure in doing things: several days 2. Feeling down, depressed, or hopeless: several days 3. Trouble falling or staying asleep, or sleeping too much: not at all 4. Feeling tired or having little energy: not at all 5. Poor appetite or overeating: not at all 6. Feeling bad about yourself - or that you are a failure or have let yourself or your family down: not at all 7. Trouble concentrating on things, such as reading the newspaper or watching television: not at all 8. Moving or speaking so slowly that other people could have noticed. Or the opposite - being so fidgety or restless that you have been moving around a lot more than usual: not at all 9. Thoughts that you would be better off or of hurting yourself in some way: not at all Total score: 2 Depression Screening Interpretation: Negative Depression Screening Done: Yes 83038 - PHQ-9 Billing: Yes Source: Developed by Drs. Janes Lopez, Susanna Riggins, Leonardo Gerber and colleagues, with an educational elaine from [employer]. Thrive Questionnaire Date Thrive assessed: 02/12/25 I am a: Patient What is your living situation today?: I have a steady place to live Within the past 12 months, did the food you bought not last and you didn't have the money to get more?: Never true Within the past 12 months, did you worry whether your food would run out before you got money to buy more?: Never true Do you have trouble paying for medicines?: No Do you have trouble getting transportation to medical appointments?: No Do you have trouble paying your heating and electricity bill?: No Do you have trouble taking care of your child, family member or friend?: No Do you have trouble with day-to-day activities such as bathing, preparing meals, shopping, managing finances, etc.?: No Are you currently unemployed and looking for a job?: No Are you interested in more education?: I choose not to answer this question Please select the resources that you would like help with: None THRIVE Score: 0 GURDEEP-7 AMB Questionnaire GURDEEP-7 Date GURDEEP - 7 assessed: 02/19/25 Feeling nervous, anxious, or on edge: 1 = Several days Not being able to stop or control worryin = Not at all Worrying too much about different things: 0 = Not at all Trouble relaxin = Not at all Being so restless that it is hard to sit still: 0 = Not at all Becoming easily annoyed or irritable: 0 = Not at all Feeling afraid as if something awful might happen: 0 = Not at all Total GURDEEP-7 score (0-4 normal; 5-9 mild; 10-14 moderate; 15-21 severe): 1 Source: Developed by Drs. Janes Lopez, Susanna Riggins, Leonardo Gerber and colleagues, with an educational elaine from [employer]. GURDEEP-7 Assessment Billing GURDEEP-7 Assessment Tool: GURDEEP-7 Assessment 62672 Physical exam (Primary Care) Vital Signs: Last Vital Signs Temp 98.0 F 09/07/25 10:02 Pulse 84 09/07/25 10:02 BP 114/70 09/07/25 10:02 Pulse Ox 98 09/07/25 10:02 Oxygen Delivery Method Room Air 09/07/25 10:02 BMI result Body Mass Index 33.1 Tobacco/Smoking Status: Tobacco use Status Tobacco use date assessed 09/07/25 09/07/25 10:05 Patient Tobacco Use Status Former Tobacco user 09/07/25 10:05 e-Cigarette/Vaping Use Never Used 09/07/25 10:05 Depression Screening Interpretation: Negative Thrive Assessment: Date of Thrive Assessment Date Thrive assessed 02/12/25 09/07/25 10:05 Coding Level of Care Code Est Pt Level 3 (39186) Diagnoses Dyslipidemia E78.5 Additional Codes GURDEEP-7 Assessment Billing - GURDEEP-7 Assessment Tool: GURDEEP-7 Assessment 02086 ([id number]) PHQ-9 - 12152 - PHQ-9 Billing: Yes ([id number]) Assessment & Plan Assessment & Plan (1) Dyslipidemia: Code(s): E78.5 - Hyperlipidemia, unspecified Category: Medical Plan . Orders: Orders Comprehensive [place]. Panel Fast Today E78.5 - Hyperlipidemia, unspecified TSH reflex Free T4 Today E78.5 - Hyperlipidemia, unspecified UA CC w/rflx Micro + Cult Today E78.5 - Hyperlipidemia, unspecified Lipid Panel Today E78.5 - Hyperlipidemia, unspecified Complete Blood Count Auto Diff Today E78.5 - Hyperlipidemia, unspecified Medications: New amoxicillin-pot clavulanate 875-125 mg 1 tab PO BID 20 tabs 0RF 10 days
[2025-09-07 10:02] VITALS: BP 114/70; PULSE 84; TEMP 36.7; O2SAT 98; BMI 33.1
--- OUTSIDE RECORDS SUMMARY | 2025-09-07 11:39 | XMS_ITS | Clinical Summary ---
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 It is not the complete legal health record.[facility]
== END 2025-09-07 10:45 | disposition home or self-care (01) ==
LOC: HO.HMCC 09:55
PROVIDERS: PCP Nurse Practitioner Family; Visit Provider Nurse Practitioner Family
DX: E78.5 Hyperlipidemia, unspecified (principal)

== ENCOUNTER → 2025-09-07 09:54 | Outpatient (BNVA) | payer OTHER, SELFPAY | PROVIDERS: PCP Nurse Practitioner Family; Visit Provider Nurse Practitioner Family | DX: I10 Essential (primary) hypertension (principal); E78.5 Hyperlipidemia, unspecified | CPT/HCPCS: 96127; 99212 ==

== ENCOUNTER 2025-10-15 09:39 | Outpatient (REF) | payer OTHER, SELFPAY ==
--- NOTE | ~2025-10-15 | XR_ITS ---
EXAMINATION: XR CHEST CLINICAL INFORMATION: J45.909 - Unspecified asthma, uncomplicated COMPARISON: Correlated to CT lung screening dated June 12, 2025 TECHNIQUE: PA and lateral views. FINDINGS: Pulmonary reticular pattern. No hyperinflation. No consolidation, pleural effusion or pneumothorax. Cardiomediastinal silhouette size is normal. Multilevel thoracolumbar spondylosis. Mild S-shaped curvature of the mid thoracic spine. XR/XR chest 2V IMPRESSION: Chronic interstitial lung disease. No overt acute airspace disease. Electronically signed by: Pernell Parkinson MD 10/15/2025 10:21 AM QUENTIN
== END 2025-10-15 09:40 | disposition home or self-care (01) ==
LOC: HO.HMGCX 09:39
PROVIDERS: PCP Nurse Practitioner Family; Visit Provider Nurse Practitioner Family
DX: J45.41 Moderate persistent asthma with (acute) exacerbation (principal); R05.1 Acute cough; R07.89 Other chest pain; F41.9 Anxiety disorder, unspecified; Z79.899 Other long term (current) drug therapy; Z87.891 Personal history of nicotine dependence
CPT/HCPCS: 71046; 99212

== ENCOUNTER 2025-10-15 09:39 | Outpatient (AMB) | payer OTHER, SELFPAY ==
[2025-10-15 09:42] VITALS: BP 106/80; PULSE 123; TEMP 36.7; O2SAT 96; BMI 32.0
--- NOTE | 2025-10-15 09:42 | AM.OFFWIN_ITS ---
Intake Vital Signs 10/15/25 09:42 Height 5 ft 6 in Weight 198 lb BMI 32.0 BP 106/80 Blood Pressure Location Lt brachial Position Sitting Pulse 123 H Pulse Source Pulse Oximeter Temp 98.0 F Temp Source Oral Pulse Oximetry (%) 96 Intake Visit Reasons: EP SOB, cough, diarrhea Intake Note: pt presents chest congestion with coughing, feverish, body chills, diarrhea, nausea began 2 wks ago- was feeling better 6 days ago and now s/s are worsened and newly developing SOB. ran out of rescue inhaler Patient Tobacco Use Status: Former Tobacco user Allergies coconut Allergy (Verified 10/15/25 09:49) Facial Swelling walnut Allergy (Verified 10/15/25 09:49) Chest Pain PEACHES Allergy (Uncoded 10/15/25 09:49) Swelling PLUM Allergy (Uncoded 10/15/25 09:49) Facial Swelling Medication List - Last Reconciled 10/15/25 by Ángela Zavala, ROXANN albuterol sulfate 90 mcg/actuation (Ventolin HFA) 2 inhalations inhalation Q4-6H atorvastatin 10 mg PO BEDTIME budesonide-formoterol 80-4.5 mcg/actuation (Symbicort) 2 puffs inhalation BID fluoxetine 40 mg PO DAILY levothyroxine 100 mcg PO DAILY lisinopril-hydrochlorothiazide 20-12.5 mg 1 tab PO DAILY loratadine (Claritin) 10 mg PO DAILY lorazepam 0.5 mg PO BID 30 days prednisone 50 mg PO DAILY 5 days Do you need a note to return to daycare/school/sports/work: No HPI HPI Comments History of Present Illness Details 55 y/o female presents to the walk-[facility] with complaints of produ ctive cough, chest tightness, shortness of breath, and body chills. Reports subjective fevers at home but has not measured temperature (no thermometer). Symptoms ongoing despite completing a 10-day course of Augmentin in September 2025 with only brief improvement. She has a history of asthma and uses Symbicort BID. She ran out of her albuterol rescue inhaler several months ago and does not currently have a nebulizer machine at home. Patient appears very anxious during the visit. Denies difficulty speaking. Able to speak in full sentences. [facility] Medical History Hypothyroid HTN (hypertension) Dyslipidemia Personal history of nicotine dependence TMJ (temporomandibular joint syndrome) Family History Father No problems noted. Mother No problems noted. Social History Housing: Apartment Patient Tobacco Use Status: Former Tobacco user Years Smoked: (onset 18yo, 1ppd x 31yrs, 30pyh - quit 2020) e-Cigarette/Vaping Use: Never Used Second Hand Smoke Exposure: No service: No Current occupational status: employed Current occupation: [email or web address] Current occupational exposures/hazards: No Cognitive needs: No Hearing needs: No Vision needs: No Review of Systems Const All systems reviewed & are unremarkable except as noted in HPI and below Physical Exam Vital Signs: Last Vital Signs Temp 98.0 F 10/15/25 09:42 Pulse 123 H 10/15/25 09:42 BP 106/80 10/15/25 09:42 Pulse Ox 96 10/15/25 09:42 BMI result Body Mass Index 32.0 Const General: no acute distress Nutritional Appearance: obese Orientation/consciousness: patient oriented x3 HEENT Head: Yes normocephalic Ears: external ears normal and TM's normal bilaterally General nose exam: Normal external nose present and No nasal discharge present Face and sinus: Yes sinuses nontender Mouth: moist mucous membranes Throat: Yes uvula midline Resp Effort & Inspection: normal respiratory effort, able to speak in complete sentences, no audible wheezes and Actively coughing Auscultation: no crackles, no rales, no rhonchi and no wheezes Cardio Heart sounds: S1 normal heart sound present and S2 normal heart sound present Neuro General: patient oriented x3 Assessment & Plan Assessment & Plan (1) Asthma: Code(s): J45.909 - Unspecified asthma, uncomplicated Qualifiers: Asthma complication type: with acute exacerbation Asthma persistence: persistent Asthma severity: moderate Qualified Code(s): J45.41 - Moderate persistent asthma with (acute) exacerbation Plan: Acute cough with chest tightness ? likely due to asthma exacerbation vs. bronchitis vs. atypical pneumonia. History of recent antibiotic course with transient improvement. Mild asthma exacerbation ? given chest tightness, productive cough, SOB, and lack of rescue inhaler. Anxiety possibly contributing to perceived SOB. Refilled Albuterol HFA inhaler; instructed to use q4?6h PRN SOB/wheezing. Increased Symbicort to 2 puffs BID. Ordered Short course of Prednisone. Chest X-ray to rule out pneumonia, especially given return of symptoms and chills/subjective fever. Provided return precautions: Worsening SOB, fever, inability to speak in full sentences, chest pain. Encouragedobtaining a home thermometer. Orders: Orders XR chest 2V Today J45.909 - Unspecified asthma, uncomplicated Medications: New prednisone 50 mg PO DAILY 5 tabs 0RF 5 days J45.909 - Unspecified asthma, uncomplicated budesonide-formoterol 80-4.5 mcg/actuation (Symbicort) 2 puffs inhalation BID 10.2 grams 0RF J45.909 - Unspecified asthma, uncomplicated Changed From albuterol sulfate 90 mcg/actuation (Ventolin HFA) 1 inh inhalation QID PRN 8.5 grams 0RF shortness of breath or wheezing J45.909 - Unspecified asthma, uncomplicated To albuterol sulfate 90 mcg/actuation (Ventolin HFA) 2 inhalations inhalation Q4-6H 8.5 grams 1RF shortness of breath or wheezing J45.909 - Unspecified asthma, uncomplicated Coding Level of Care Code Est Pt Level 4 (71710) Diagnoses Moderate persistent asthma with acute exacerbation J45.41 Asthma complication type: with acute exacerbation Asthma persistence: persistent Asthma severity: moderate Time Spent (min) 20
== END 2025-10-15 10:13 | disposition home or self-care (01) ==
PROVIDERS: PCP Nurse Practitioner Family; Visit Provider Nurse Practitioner Family
DX: J45.41 Moderate persistent asthma with (acute) exacerbation (principal)

== ENCOUNTER → 2025-10-15 10:07 | Outpatient (BNV) | payer OTHER, SELFPAY | PROVIDERS: PCP Nurse Practitioner Family; Visit Provider Radiology Diagnostic Radiology | DX: J45.909 Unspecified asthma, uncomplicated (principal); J84.9 Interstitial pulmonary disease, unspecified | CPT/HCPCS: 71046 ==